=== PATIENT | female | born 1965 | race American Indian/Alaskan Native ===

== ENCOUNTER 2017-10-31 09:01 | Outpatient (CLI) | payer OTHER ==
--- NOTE | 2017-10-31 11:56 | Ultrasound Report ---
ULTRASOUND RENAL BILATERAL HISTORY: Kidney disease stage III. TECHNIQUE: transabdominal ultrasound with color Doppler interrogation. COMPARISON: none. FINDINGS: The right kidney measures 10.6 x 3.9 x 4.1cm. Right renal cortex: 1.4cm. The left kidney measures 12.4 x 5.1 x 6.2cm. Left renal cortex: 1.5cm. The kidneys are normal size, contour and position. There is increased renal cortical echotexture bilaterally consistent with nonspecific renal parenchymal disease. Corticomedullary differentiation is preserved. There are 2 cysts in the mid to inferior right kidney measuring 2.2 cm and 1.7 cm. There are 3 cysts in the left kidney measuring 1.2 cm, 1.1 cm and 0.8 cm. No evidence for mass, nephrolithiasis, hydronephrosis or perinephric fluid. The views of the bladder and the region of the ureters appear normal. IMPRESSION: Slightly echogenic kidneys consistent with nonspecific renal parenchymal disease. Bilateral renal cysts as described. No obstructive uropathy.
== END 2017-10-31 09:02 | disposition home or self-care (01) ==
LOC: US 09:01
PROVIDERS: ATTEND Internal Medicine Nephrology
DX: I12.9 Hypertensive chronic kidney disease with stage 1 through stage 4 chronic kidney disease, or unspecified chronic kidney disease (principal); N18.3 Chronic kidney disease, stage 3 (moderate); N28.1 Cyst of kidney, acquired; I25.10 Atherosclerotic heart disease of native coronary artery without angina pectoris; E66.9 Obesity, unspecified; I73.9 Peripheral vascular disease, unspecified; E03.9 Hypothyroidism, unspecified; Z90.49 Acquired absence of other specified parts of digestive tract
CPT/HCPCS: 76770

== ENCOUNTER 2018-08-31 01:25 | Emergency (ER) | payer SELFPAY ==
[2018-08-31 01:29] VITALS: BP 109/84
[2018-08-31] MEDS ORDERED: TORADOL IM ONE (02:27)
[2018-08-31] MEDS ORDERED: DELTASONE PO ONE (02:27)
--- NOTE | 2018-08-31 03:03 | Emergency Department Report ---
ED Back Pain/Injury HPI - General Chief Complaint: Back Pain/Injury Stated Complaint: LOWER BACK PAIN Time Seen by Provider: 08/31/18 01:44 Source: patient Limitations: No Limitations - History of Present Illness Initial Comments: This is a 52-year-old female nontoxic, well nourished in appearance, no acute signs of distress presents to the ED with c/o of acute on chronic lower back pain. Patient stated that the past 2 days he was moving and developed this pain. 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 Patient states that pain radiates through to his left lower extremity. Patient denies any trauma. Denies any bladder or bowel instability. Patient denies any urinary symptoms. Denies any fever, chills, nausea, vomiting, headache, stiff neck, chest pain or shortness of breath. Patient denies any numbness or tingling. Denies any allergies. Denies significant past medical history. MD Complaint: back pain -: days(s) Similar Symptoms Previously: Yes Place: work Radiation: left leg Severity: mild Severity scale (0 -10): 8 Quality: aching Consistency: intermittent Improves With: immobilization, sitting upright Worsens With: movement, walking Context: while lifting, turning/twisting Associated Symptoms: denies other symptoms. denies: confusion, weakness, chest pain, numbness, difficulty walking, cough, difficulty urinating, diaphoresis, incontinence, fever/chills, constipation, headaches, abdominal pain, loss of appetite, malaise, nausea/vomiting, rash, seizure, shortness of breath, syncope - Related Data Home Medications Medication Instructions Recorded Confirmed Last Taken Aspirin [Aspirin BABY CHEW TAB] 81 mg PO QDAY 06/29/14 12/03/16 11/26/16 09:00 Cyclobenzaprine [Flexeril 10 MG 10 mg PO TID PRN 12/23/15 12/03/16 12/02/16 20:00 TAB] Metoprolol [Lopressor TAB] 25 mg PO DAILY 12/23/15 12/03/16 12/02/16 20:00 amLODIPine [Norvasc] 2.5 mg PO DAILY 12/23/15 12/03/16 12/02/16 20:00 Levothyroxine (Nf) [Synthroid (Nf)] 200 mcg PO QAM 11/26/16 12/03/16 12/02/16 20:00 Hydrochlorothiazide 25 mg PO DAILY 12/03/16 12/03/16 11/30/16 20:00 Previous Rx's Medication Instructions Recorded Last Taken Type AtorvaSTATin [Lipitor] 40 mg PO DAILY #30 tablet 12/13/14 12/02/16 20:00 Rx Ibuprofen 800 mg PO Q6HR PRN #30 tablet 12/03/16 Unknown Rx Cyclobenzaprine [Flexeril] 10 mg PO QHS PRN #10 tablet 08/31/18 Unknown Rx Ibuprofen [Motrin] 600 mg PO Q8H PRN #20 tablet 08/31/18 Unknown Rx Allergies Allergy/AdvReac Type Severity Reaction Status Date / Time No Known Allergies Allergy Verified 11/26/16 15:10 ED Review of Systems ROS: Stated complaint: LOWER BACK PAIN Other details as noted in HPI Constitutional: denies: chills, fever Eyes: denies: eye pain, eye discharge, vision change ENT: denies: ear pain, throat pain Respiratory: denies: cough, shortness of breath, wheezing Cardiovascular: denies: chest pain, palpitations Endocrine: no symptoms reported Gastrointestinal: denies: abdominal pain, nausea, diarrhea Genitourinary: denies: urgency, dysuria, discharge Musculoskeletal: back pain. denies: joint swelling, arthralgia Skin: denies: rash, lesions Neurological: denies: headache, weakness, paresthesias Psychiatric: denies: anxiety, depression Hematological/Lymphatic: denies: easy bleeding, easy bruising ED Past Medical Hx - Past Medical History Previous Medical History?: Yes Hx Hypertension: Yes Hx Heart Attack/AMI: Yes (2012 and 2013) Hx Renal Disease: No Hx Sickle Cell Disease: No Hx HIV: No Additional medical history: CAD, high cholesterol, Hypothyroidism. "multiple renal cysts" - Surgical History Past Surgical History?: Yes Hx Coronary Stent: Yes (03/23 x3) Hx Cholecystectomy: Yes - Social History Smoking Status: Current Every Day Smoker - Medications Home Medications: Home Medications Medication Instructions Recorded Confirmed Last Taken Type Aspirin [Aspirin BABY CHEW TAB] 81 mg PO QDAY 06/29/14 12/03/16 11/26/16 09:00 History AtorvaSTATin [Lipitor] 40 mg PO DAILY #30 tablet 12/13/14 12/03/16 12/02/16 20:00 Rx Cyclobenzaprine [Flexeril 10 MG 10 mg PO TID PRN 12/23/15 12/03/16 12/02/16 20:00 History TAB] Metoprolol [Lopressor TAB] 25 mg PO DAILY 12/23/15 12/03/16 12/02/16 20:00 History amLODIPine [Norvasc] 2.5 mg PO DAILY 12/23/15 12/03/16 12/02/16 20:00 History Levothyroxine (Nf) [Synthroid (Nf)] 200 mcg PO QAM 11/26/16 12/03/16 12/02/16 20:00 History Hydrochlorothiazide 25 mg PO DAILY 12/03/16 12/03/16 11/30/16 20:00 History Ibuprofen 800 mg PO Q6HR PRN #30 tablet 12/03/16 Unknown Rx Cyclobenzaprine [Flexeril] 10 mg PO QHS PRN #10 tablet 08/31/18 Unknown Rx Ibuprofen [Motrin] 600 mg PO Q8H PRN #20 tablet 08/31/18 Unknown Rx ED Physical Exam - General Limitations: No Limitations General appearance: alert, in no apparent distress - Head Head exam: Present: atraumatic, normocephalic - Eye Eye exam: Present: normal appearance - Neck Neck exam: Present: normal inspection, full ROM. Absent: tenderness, meningismus, lymphadenopathy - Extremities Exam Extremities exam: Present: normal inspection, full ROM. Absent: tenderness - Back Exam Back exam: Present: normal inspection, full ROM, paraspinal tenderness (lumbar paraspinal). Absent: tenderness, CVA tenderness (R), CVA tenderness (L), muscle spasm, vertebral tenderness, rash noted - Expanded Back Exam Expanded Back exam: Absent: saddle anesthesia Back exam: Negative Straight Leg Raising: Left, Right - Neurological Exam Neurological exam: Present: alert, oriented X3, normal gait - Psychiatric Psychiatric exam: Present: normal affect, normal mood - Skin Skin exam: Present: warm, dry, intact, normal color. Absent: rash ED Course Vital Signs 08/31/18 08/31/18 01:27 02:40 Temperature 97.9 F Pulse Rate 70 Respiratory 16 16 Rate Blood Pressure 109/84 O2 Sat by Pulse 98 Oximetry - Reevaluation(s) Reevaluation #1: 08/31/18 03:01 Patient is speaking in full sentences with no signs of distress noted. ED Medical Decision Making - Medical Decision Making This is a 52-year-old female that presents with low back strain. Patient is stable was examined by me. There is no spinal tenderness. There is no cauda equina syndrome during examination. No bladder or bowel instability. Patient received Toradol 60 mg IM and prednisone in the ED which preceded his symptoms has resolved and subsided. Patient is discharged with muscle relaxant and Motrin. Patient was instructed not to operate any machinery while taking muscle relaxant as they cause her drowsiness. Patient was referred to Follow-up with a primary care doctor in 3-5 days or if symptoms worsen and continue return to emergency room as soon as possible. At time of discharge, the patient does not seem toxic or ill in appearance. No acute signs of distress noted. Patient agrees to discharge treatment plan of care. No further questions noted by the patient. This chart is dictated with using [employer] Critical care attestation.: If time is entered above; I have spent that time in minutes in the direct care of this critically ill patient, excluding procedure time. ED Disposition Clinical Impression: Low back strain Qualifiers: Encounter type: initial encounter Qualified Code(s): S39.012A - Strain of muscle, fascia and tendon of lower back, initial encounter Disposition: DC- TO HOME OR SELFCARE Is pt being admited?: No Does the pt Need Aspirin: No Condition: Stable Instructions: Low Back Strain (ED), Cyclobenzaprine (By mouth) Additional Instructions: Follow-up with your primary care doctor in 3-5 days or if symptoms worsen such as bladder or bowel stability, chest pain, short of breath, numbness or tingling sensation in extremities, headache, dizziness, visual changes, nausea vomiting, or abdominal pain, return back to emergency room as was possible. Take ibuprofen and Flexeril as prescribed. Do not operate heavy machinery while taking Flexeril due to sedation Prescriptions: Cyclobenzaprine [Flexeril] 10 mg PO QHS PRN #10 tablet PRN Reason: Muscle Spasm Ibuprofen [Motrin] 600 mg PO Q8H PRN #20 tablet PRN Reason: Pain Referrals: [facility] MD RADHA [Primary Care Provider] - 3-5 Days PRIMARY MD GEENA [Referring] - 3-5 Days BRUNA MCBRIDE MD [Staff Physician] - 3-5 Days [facility] [Outside] - 3-5 Days [facility] [Outside] - 3-5 Days Forms: Work/School Release Form(ED)
== END 2018-08-31 03:28 | disposition home or self-care (01) ==
LOC: ED 01:25
DX: S39.012A Strain of muscle, fascia and tendon of lower back, initial encounter (principal); I10 Essential (primary) hypertension; I25.2 Old myocardial infarction; I25.10 Atherosclerotic heart disease of native coronary artery without angina pectoris; E78.00 Pure hypercholesterolemia, unspecified; E03.9 Hypothyroidism, unspecified; F17.200 Nicotine dependence, unspecified, uncomplicated; Z79.899 Other long term (current) drug therapy; Z95.5 Presence of coronary angioplasty implant and graft; Z90.49 Acquired absence of other specified parts of digestive tract; X58.XXXA Exposure to other specified factors, initial encounter; Y93.89 Activity, other specified; Y92.89 Other specified places as the place of occurrence of the external cause; Y99.8 Other external cause status
CPT/HCPCS: 96372; 99282; J1885; J7512

== ENCOUNTER 2018-12-01 16:08 | Observation (INO) | payer SELFPAY ==
--- NOTE | 2018-12-01 16:31 | Emergency Department Report ---
Blank Doc - Documentation Documentation: c/o of cough and congestion for 2-3 months and a round of antibiotics has not help to resolve the cough and mucus. She reports now having mid chest pain and sob and symptoms worsen with supine has to sleep in semifowlers. This initial assessment/diagnostic orders/clinical plan/treatment(s) is/are subject to change based on patient's health status, clinical progression and re- assessment by fellow clinical providers in the ED. Further treatment and workup at subsequent clinical providers discretion. Patient/guardians urged not to elope from the ED as their condition may be serious if not clinically assessed and managed. Initial orders include: labs and xray
--- NOTE | 2018-12-01 17:17 | XRay Report ---
CHEST 2 VIEWS INDICATION: Chest Pain. COMPARISON: 12/13/2014 FINDINGS: Support devices: None. Heart: Slightly enlarged Lungs: Bronchovascular markings are prominent. Pleura: No significant pleural effusion. No pneumothorax. Additional findings: None. IMPRESSION: 1. Interval development mild cardiac enlargement with mild pulmonary venous hypertension Signer Name: Mathew Pandya MD Signed: 12/01/2018 5:13 PM Workstation Name: [id number]
[2018-12-01] MEDS ORDERED: guaiFENesin/CODEINE 100-10MG ORAL LIQD 5 ML PO ONE (17:31)
[2018-12-01] MEDS ORDERED: methylPREDNISolone Sod Succinate 125 MG/2 ML INJ IV ONE (17:31)
[2018-12-01] MEDS ORDERED: IPRATROPIUM/ALBUTEROL SULFATE 3 ML AMPUL.NEB IH ONE (17:32)
--- NOTE | 2018-12-01 17:54 | Emergency Department Report ---
ED Chest Pain HPI - General Chief Complaint: Chest Pain Stated Complaint: CHEST PAIN/COUGH/STOMACH ACHE Time Seen by Provider: 12/01/18 16:28 Source: patient Mode of arrival: Ambulatory Limitations: No Limitations - History of Present Illness Initial Comments: 53-year-old -[place] female presents to the emergency department with the complaint of a chronic cough and some acute chest pain. The patient says that she has a two-month history of a productive cough. She spent some time recently in [place] and says that she developed a cold and was being treated there with some antibiotics but the cough never improved. Starting yesterday, the patient has developed some midsternal nonradiating chest tightness/pain. It is associated with some shortness of breath that worsens when laying flat. She appears a been on cough medication. She has a past mental history of coronary artery disease with NC 2 and 3 cardiac stents, hypertension, high cholesterol and hypothyroidism. Her primary care physician is Dr. 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 - Related Data Home Medications Medication Instructions Recorded Confirmed Last Taken Aspirin [Aspirin BABY CHEW TAB] 81 mg PO QDAY 06/29/14 12/03/16 11/30/18 22:00 Metoprolol [Lopressor TAB] 25 mg PO DAILY 12/23/15 12/03/16 12/02/16 20:00 amLODIPine 2.5 mg PO DAILY 12/23/15 12/03/16 12/02/16 20:00 Levothyroxine (Nf) [Synthroid (Nf)] 200 mcg PO QAM 11/26/16 12/03/16 12/02/16 20:00 Hydrochlorothiazide 25 mg PO DAILY 12/03/16 12/01/18 11/30/16 20:00 Procardia Xl 90 mg PO QDAY 12/01/18 12/01/18 11/30/18 22:00 Previous Rx's Medication Instructions Recorded Last Taken Type AtorvaSTATin [Lipitor] 40 mg PO DAILY #30 tablet 12/13/14 12/02/16 20:00 Rx Cyclobenzaprine [Flexeril] 10 mg PO QHS PRN #10 tablet 08/31/18 Unknown Rx Ibuprofen [Motrin] 600 mg PO Q8H PRN #20 tablet 08/31/18 Unknown Rx Allergies Allergy/AdvReac Type Severity Reaction Status Date / Time No Known Allergies Allergy Verified 11/26/16 15:10 Heart Score - HEART Score History: Moderately suspicious EKG: Non-specific Age: 45-65 Risk factors: > 3 risk factors or hx of atherosclerotic disease (mother) Troponin: < normal limit HEART Score: 5 - Critical Actions Critical Actions: 4-6 pts:12-16.6% risk of adverse cardiac event. Should be admitted ED Review of Systems ROS: Stated complaint: CHEST PAIN/COUGH/STOMACH ACHE Other details as noted in HPI Comment: All other systems reviewed and negative Constitutional: denies: chills, fever Eyes: denies: eye pain, vision change ENT: denies: ear pain, throat pain Respiratory: cough, orthopnea, shortness of breath Cardiovascular: chest pain. denies: palpitations, edema Gastrointestinal: denies: abdominal pain, vomiting Genitourinary: denies: dysuria, discharge Musculoskeletal: denies: back pain, arthralgia Skin: denies: rash, lesions Neurological: denies: headache, weakness ED Past Medical Hx - Past Medical History Previous Medical History?: Yes Hx Hypertension: Yes Hx Heart Attack/AMI: Yes (2012 and 2013) Hx Renal Disease: No Hx Sickle Cell Disease: No Hx HIV: No Additional medical history: CAD, high cholesterol, Hypothyroidism. "multiple renal cysts" - Surgical History Past Surgical History?: Yes Hx Coronary Stent: Yes (03/23 x3) Hx Cholecystectomy: Yes - Social History Smoking Status: Current Every Day Smoker Substance Use Type: None - Medications Home Medications: Home Medications Medication Instructions Recorded Confirmed Last Taken Type Aspirin [Aspirin BABY CHEW TAB] 81 mg PO QDAY 06/29/14 12/03/16 11/30/18 22:00 History AtorvaSTATin [Lipitor] 40 mg PO DAILY #30 tablet 12/13/14 12/03/16 12/02/16 20:00 Rx Metoprolol [Lopressor TAB] 25 mg PO DAILY 12/23/15 12/03/16 12/02/16 20:00 History amLODIPine 2.5 mg PO DAILY 12/23/15 12/03/16 12/02/16 20:00 History Levothyroxine (Nf) [Synthroid (Nf)] 200 mcg PO QAM 11/26/16 12/03/16 12/02/16 20:00 History Hydrochlorothiazide 25 mg PO DAILY 12/03/16 12/01/18 11/30/16 20:00 History Cyclobenzaprine [Flexeril] 10 mg PO QHS PRN #10 tablet 08/31/18 Unknown Rx Ibuprofen [Motrin] 600 mg PO Q8H PRN #20 tablet 08/31/18 Unknown Rx Procardia Xl 90 mg PO QDAY 12/01/18 12/01/18 11/30/18 22:00 History ED Physical Exam - General Limitations: No Limitations - Other Other exam information: GENERAL: The patient is well-developed well-nourished. HENT: Normocephalic. Atraumatic. Patient has moist mucous membranes. EYES: Extraocular motions are intact. Pupils equal reactive to light bilaterally. NECK: Supple. Trachea is midline. CHEST/LUNGS: Clear to auscultation. No tachypnea or accessory muscle use. No cough heard during examination. There is no respiratory distress noted. HEART/CARDIOVASCULAR: Regular. There is no tachycardia. There is no murmur. ABDOMEN: Abdomen is soft, nontender. Patient has normal bowel sounds. There is no abdominal distention. SKIN: Skin is warm and dry. NEURO: The patient is awake, alert, and oriented. The patient is cooperative. The patient has no focal neurologic deficits. Normal speech. MUSCULOSKELETAL: There is no tenderness or deformity. There is no evidence of acute injury. ED Course Vital Signs 12/01/18 12/01/18 12/01/18 16:26 17:50 18:01 Temperature 97.5 F L Pulse Rate 83 76 Pulse Rate [ Anterior Bilateral Throughout] Respiratory 22 19 Rate Respiratory Rate [Anterior Bilateral Throughout] Blood Pressure 167/104 135/89 Blood Pressure [Left] O2 Sat by Pulse 99 97 94 Oximetry 12/01/18 12/01/18 12/01/18 18:02 18:31 19:00 Temperature 98 F Pulse Rate 83 79 Pulse Rate [ 77 Anterior Bilateral Throughout] Respiratory 16 23 16 Rate Respiratory 18 Rate [Anterior Bilateral Throughout] Blood Pressure 135/89 Blood Pressure 142/86 [Left] O2 Sat by Pulse 96 92 97 Oximetry 12/01/18 12/01/18 12/01/18 19:01 19:31 20:33 Temperature Pulse Rate 84 81 Pulse Rate [ Anterior Bilateral Throughout] Respiratory 14 20 Rate Respiratory Rate [Anterior Bilateral Throughout] Blood Pressure 135/89 142/86 142/86 Blood Pressure [Left] O2 Sat by Pulse 94 95 96 Oximetry 12/01/18 12/01/18 12/01/18 20:51 21:00 21:11 Temperature Pulse Rate Pulse Rate [ Anterior Bilateral Throughout] Respiratory Rate Respiratory Rate [Anterior Bilateral Throughout] Blood Pressure 142/86 159/90 159/90 Blood Pressure [Left] O2 Sat by Pulse 96 97 96 Oximetry 12/01/18 12/01/18 21:21 21:31 Temperature Pulse Rate Pulse Rate [ Anterior Bilateral Throughout] Respiratory Rate Respiratory Rate [Anterior Bilateral Throughout] Blood Pressure 159/90 142/98 Blood Pressure [Left] O2 Sat by Pulse 92 92 Oximetry ED Medical Decision Making - Lab Data Result diagrams: 12/01/18 17:12 12/01/18 17:12 - EKG Data -: EKG Interpreted by Me EKG shows normal: sinus rhythm (PACs), axis (left axis deviation), intervals, QRS complexes, ST-T waves (t wave inversions to the lateral leads) Rate: normal - EKG Data When compared to previous EKG there are: no significant change Interpretation: unchanged when compared t (12/23/15) - Radiology Data Radiology results: report reviewed, image reviewed interpreted by me: Chest x-ray shows some cardiomegaly and pulmonary vascular congestion. No overt pleural effusions. Nuclear medicine lung ventilation and perfusion imaging INDICATION / CLINICAL INFORMATION: Chest pain and elevated d-dimer. TECHNIQUE: Dose / Agent / Route: The patient received 20.9 mCi xenon-133 gas by inhalation and 4.66 mCi technetium 99m MAA intravenously. COMPARISON: Chest radiograph from the same date. FINDINGS: There is mild air trapping in both mid to lower lung zones, left greater than right. There is mild inhomogeneity of perfusion bilaterally. No segmental or larger area of ventilation-perfusion mismatch is seen. The accompanying chest radiograph reveals cardiomegaly and coronary artery calcification/stents. No acute pulmonary disease is identified. IMPRESSION: Low probability for acute PTE. - Medical Decision Making This patient presents with a two-month history of a productive cough and now has developed some chest pain. She does have a history of coronary artery disease with cardiac stents. Chest x-ray shows some cardiomegaly and pulmonary vascular congestion. Labs show renal insufficiency, an elevated and equivocal d-dimer, slightly elevated BNP. Negative troponins 2 thus far. Ventilation perfusion scan is low probability for a pulmonary embolus. Given her chest pain, cardiac history, and that it has been a few years since she last had a stress test, the patient be admitted to the hospital for further evaluation and treatment and was accepted for admission by the hospitalist service. - Differential Diagnosis NC, PE, pneumonia, CHF Critical Care Time: No Critical care attestation.: If time is entered above; I have spent that time in minutes in the direct care of this critically ill patient, excluding procedure time. ED Disposition Clinical Impression: Acute chest pain, History of coronary artery stent placement Acute renal failure Qualifiers: Acute renal failure type: unspecified Qualified Code(s): N17.9 - Acute kidney failure, unspecified Disposition: DC-09 OP ADMIT IP TO THIS HOSP Is pt being admited?: Yes Condition: Fair Time of Disposition: 23:02
[2018-12-01 18:02] LABS: Hematocrit 41.7 % (30.3-42.9); Hemoglobin 14.1 gm/dl (10.1-14.3); Mean Corpuscular HGB Conc 34 % (30-34); Mean Corpuscular Volume 92 fl (79-97); Platelet Count 435 K/mm3 (140-440); Red Blood Count 4.52 M/mm3 (3.65-5.03); Red Cell Distribution Width 15.8 % (13.2-15.2)
[2018-12-01 18:06] LABS: Alanine Aminotransferase 12 units/L (7-56); Albumin 4.5 g/dL (3.9-5); BUN/Creatinine Ratio 13; Blood Urea Nitrogen 23 mg/dL (7-17); Calcium 9.2 mg/dL (8.4-10.2); Hemolysis Index 24
[2018-12-01] MEDS ORDERED: HYDROmorphone 1 MG/1 ML INJ IV PRN (19:47)
[2018-12-01] MEDS ORDERED: MORPHINE 2 MG/1 ML INJ IV PRN (19:47)
[2018-12-01] MEDS ORDERED: ONDANSETRON 4 MG/2 ML INJ IV PRN (19:47)
[2018-12-01] MEDS ORDERED: ALBUTEROL 2.5 MG/3 ML NEBU IH PRN (19:47)
[2018-12-01] MEDS ORDERED: ACETAMINOPHEN 325 MG TAB PO PRN (19:47)
[2018-12-01 19:59] LABS: Basophils % (Manual) 0 % (0.0-1.8); Eosinophils % (Manual) 0 % (0.0-4.3); RBC Morphology Normal; Total Cells Counted 100
[2018-12-01] MEDS ORDERED: SODIUM CHLORIDE 0.9% 1000 ML 1,000 ML IV SCH (20:00)
--- NOTE | 2018-12-01 20:47 | Nuclear Medicine Report ---
Nuclear medicine lung ventilation and perfusion imaging INDICATION / CLINICAL INFORMATION: Chest pain and elevated d-dimer. TECHNIQUE: Dose / Agent / Route: The patient received 20.9 mCi xenon-133 gas by inhalation and 4.66 mCi techneti um 99m MAA intravenously. COMPARISON: Chest radiograph from the same date. FINDINGS: There is mild air trapping in both mid to lower lung zones, left greater than right. There is mild in homogeneity of perfusion bilaterally. No segmental or larger area of ventilation-perfusion mismatch i s seen. The accompanying chest radiograph reveals cardiomegaly and coronary artery calcification/stents. No a cute pulmonary disease is identified. IMPRESSION: Low probability for acute PTE. Signer Name: Angel Castillo MD Signed: 12/01/2018 8:43 PM Workstation Name: [id number]
--- NOTE | 2018-12-01 21:17 | History and Physical Report ---
History of Present Illness Date of examination: 12/01/18 Date of admission: 12/01/18 19:47 Chief complaint: chest pain History of present illness: 53-year-old -Chinese female who is an ongoing smoker with history of IN 2, CAD s/p stent 3, hypertension, hypothyroidism and multiple renal cysts who presents [facility] with complaints of intermittent substernal chest pain with radiation to stomach. Patient states that she's been experiencing substernal chest pain with radiation to epigastric area for the past 2 days. She states that she was awakened out of sleep with 10/10 sharp/burning chest pain. The following morning she went to work and her chest pain returned. 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 She states that her chest pain was accompanied by diaphoresis and nausea. She denies emesis. Patient states that she is compliant with medication and follows up regularly with her hearing examiner ( Dr. Garcia @ [facility]), last appointment approximately 3-4 months ago. Her PCP is Dr. Armendariz. She admits to being diag nosed and treated for bronchitis in August of this year. Past History Past Medical History: acute IN (x2 ( 2012, 2013)), CAD (s/p stent x 2 (x2 01/26 14, x1 03/2014)), hypertension, hyperlipidemia, hypothyroidism, other (obesity, normal stress test, multiple renal cysts) Past Surgical History: Other (s/p stent x 2 (x2 01/2014, x1 03/2014)) Social history: Lives alone, smoking (current every day smoker) Family history: hypertension Medications and Allergies Allergies Allergy/AdvReac Type Severity Reaction Status Date / Time No Known Allergies Allergy Verified 11/26/16 15:10 Home Medications Medication Instructions Recorded Confirmed Last Taken Type Aspirin [Aspirin BABY CHEW TAB] 81 mg PO QDAY 06/29/14 12/03/16 11/26/16 09:00 History AtorvaSTATin [Lipitor] 40 mg PO DAILY #30 tablet 12/13/14 12/03/16 12/02/16 20:00 Rx Metoprolol [Lopressor TAB] 25 mg PO DAILY 12/23/15 12/03/16 12/02/16 20:00 History amLODIPine 2.5 mg PO DAILY 12/23/15 12/03/1617 20:00 History Levothyroxine (Nf) [Synthroid (Nf)] 200 mcg PO QAM 11/26/16 12/03/16 12/02/16 20:00 History Hydrochlorothiazide 25 mg PO DAILY 12/03/16 12/01/18 11/30/16 20:00 History Cyclobenzaprine [Flexeril] 10 mg PO QHS PRN #10 tablet 08/31/18 Unknown Rx Ibuprofen [Motrin] 600 mg PO Q8H PRN #20 tablet 08/31/18 Unknown Rx Active Meds: Active Medications Acetaminophen (Tylenol) 650 mg PO Q4H PRN PRN Reason: Pain MILD(1-3)/Fever >100.5/MONROY Albuterol (Proventil) 2.5 mg IH Q3HRT PRN PRN Reason: Shortness Of Breath Amlodipine Besylate (Amlodipine) 2.5 mg PO DAILY [facility] Aspirin (Baby Aspirin) 81 mg PO QDAY [facility] Atorvastatin Calcium (Lipitor) 40 mg PO DAILY [facility] Guaifenesin (Mucinex Er) 600 mg PO BID [facility] Heparin Sodium (Porcine) (Heparin) 5,000 unit SUB-Q Q12HR [facility] Hydrochlorothiazide (Hctz) 25 mg PO QDAY [facility] Hydromorphone HCl (Dilaudid) 0.5 mg IV Q3H PRN PRN Reason: Pain , Severe (7-10) Sodium Chloride (Nacl 0.9% 1000 Ml) 1,000 mls @ 50 mls/hr IV DIRECT ROMMEL Levothyroxine Sodium (Synthroid) 200 mcg PO QAM [facility] Metoprolol Tartrate (Metoprolol) 25 mg PO DAILY [facility] Morphine Sulfate (Morphine) 2 mg IV Q4H PRN PRN Reason: Pain, Moderate (4-6) Nicotine (Habitrol) 14 mg TD QDAY [facility] Ondansetron HCl (Zofran) 4 mg IV Q6H PRN PRN Reason: Nausea And Vomiting Sodium Chloride (Sodium Chloride Flush Syringe 10 Ml) 10 ml IV BID [facility] Sodium Chloride (Sodium Chloride Flush Syringe 10 Ml) 10 ml IV PRN PRN PRN Reason: LINE FLUSH Sodium Chloride (Sodium Chloride Flush Syringe 10 Ml) 10 ml IV PRN PRN PRN Reason: LINE FLUSH Review of Systems All systems: negative Cardiovascular: chest pain, orthopnea Respiratory: cough with sputum (chronic cough, some clear sputum, previously treated for bronchitis approximately 4 months ago at a facility in [place]) Gastrointestinal: heartburn, indigestion, other (abdominal discomfort) Musculoskeletal: arm numbness/tingling (chronic numbness and tingling to right arm) Exam - Physical Exam Narrative exam: General appearance: Present: No acute distress, awake, alert and oriented 3, well-developed, well-nourished, pleasant adult female - EENT Eyes: Present: PERRL, EOM intact ENT: hearing intact, double dentition - Neck Neck: Present: supple, normal ROM - Respiratory Respiratory effort: Non-labored Respiratory: bilateral: CTA with diminished bases bilaterally - Cardiovascular Heart rate:88 (bpm) Rhythm:SR nonspecific T-wave abnormalities Heart Sounds: Present: S1, S2. - Extremities Extremities: no ischemia, pulses intact - Peripheral Assessment Peripheral Pulses: within normal limits - Abdominal General gastrointestinal: soft, non-tender, normal bowel sounds, - Integumentary Integumentary: Present: warm, dry - Musculoskeletal Musculoskeletal: able to move all extremities, normal gait -Neurological Neurological: CN II-XII grossly intact - Psychiatric Psychiatric: cooperative - Constitutional Vitals: Temp Pulse Resp BP Pulse Ox 98 F 81 20 142/86 96 12/01/18 19:00 12/01/18 19:31 12/01/18 19:31 12/01/18 20:33 12/01/18 20:33 Results - Labs CBC & Chem 7: 12/01/18 17:12 12/01/18 17:12 Labs: Laboratory Last Values WBC 9.9 K/mm3 (4.5-11.0) 12/01/18 17:12 RBC 4.52 M/mm3 (3.65-5.03) 12/01/18 17:12 Hgb 14.1 gm/dl (10.1-14.3) 12/01/18 17:12 Hct 41.7 % (30.3-42.9) 12/01/18 17:12 MCV 92 fl (79-97) 12/01/18 17:12 MCH 31 pg (28-32) 12/01/18 17:12 MCHC 34 % (30-34) 12/01/18 17:12 RDW 15.8 % (13.2-15.2) H 12/01/18 17:12 Plt Count 435 K/mm3 (140-440) 12/01/18 17:12 Add Manual Diff Complete 12/01/18 17:12 Total Counted 100 12/01/18 17:12 Seg Neuts % (Manual) 74.0 % (40.0-70.0) H 12/01/18 17:12 Band Neutrophils % 0 % 12/01/18 17:12 Lymphocytes % (Manual) 22.0 % (13.4-35.0) 12/01/18 17:12 Reactive Lymphs % (Man) 0 % 12/01/18 17:12 Monocytes % (Manual) 4.0 % (0.0-7.3) 12/01/18 17:12 Eosinophils % (Manual) 0 % (0.0-4.3) 12/01/18 17:12 Basophils % (Manual) 0 % (0.0-1.8) 12/01/18 17:12 Metamyelocytes % 0 % 12/01/18 17:12 Myelocytes % 0 % 12/01/18 17:12 Promyelocytes % 0 % 12/01/18 17:12 Blast Cells % 0 % 12/01/18 17:12 Nucleated RBC % Not Reportable 12/01/18 17:12 Seg Neutrophils # Man 7.3 K/mm3 (1.8-7.7) 12/01/18 17:12 Band Neutrophils # 0.0 K/mm3 12/01/18 17:12 Lymphocytes # (Manual) 2.2 K/mm3 (1.2-5.4) 12/01/18 17:12 Abs React Lymphs (Man) 0.0 K/mm3 12/01/18 17:12 Monocytes # (Manual) 0.4 K/mm3 (0.0-0.8) 12/01/18 17:12 Eosinophils # (Manual) 0.0 K/mm3 (0.0-0.4) 12/01/18 17:12 Basophils # (Manual) 0.0 K/mm3 (0.0-0.1) 12/01/18 17:12 Metamyelocytes # 0.0 K/mm3 12/01/18 17:12 Myelocytes # 0.0 K/mm3 12/01/18 17:12 Promyelocytes # 0.0 K/mm3 12/01/18 17:12 Blast Cells # 0.0 K/mm3 12/01/18 17:12 WBC Morphology Not Reportable 12/01/18 17:12 Hypersegmented Neuts Not Reportable 12/01/18 17:12 Hyposegmented Neuts Not Reportable 12/01/18 17:12 Hypogranular Neuts Not Reportable 12/01/18 17:12 Smudge Cells Not Reportable 12/01/18 17:12 Toxic Granulation Not Reportable 12/01/18 17:12 Toxic Vacuolation Not Reportable 12/01/18 17:12 Dohle Bodies Not Reportable 12/01/18 17:12 Pelger-Huet Anomaly Not Reportable 12/01/18 17:12 Harsh Rods Not Reportable 12/01/18 17:12 Platelet Estimate Appears normal 12/01/18 17:12 Clumped Platelets Not Reportable 12/01/18 17:12 Plt Clumps, EDTA Not Reportable 12/01/18 17:12 Large Platelets Not Reportable 12/01/18 17:12 Giant Platelets Not Reportable 12/01/18 17:12 Platelet Satelliting Not Reportable 12/01/18 17:12 Plt Morphology Comment Not Reportable 12/01/18 17:12 RBC Morphology Normal 12/01/18 17:12 Dimorphic RBCs Not Reportable 12/01/18 17:12 Polychromasia Not Reportable 12/01/18 17:12 Hypochromasia Not Reportable 12/01/18 17:12 Poikilocytosis Not Reportable 12/01/18 17:12 Anisocytosis Not Reportable 12/01/18 17:12 Microcytosis Not Reportable 12/01/18 17:12 Macrocytosis Not Reportable 12/01/18 17:12 Spherocytes Not Reportable 12/01/18 17:12 Pappenheimer Bodies Not Reportable 12/01/18 17:12 Sickle Cells Not Reportable 12/01/18 17:12 Target Cells Not Reportable 12/01/18 17:12 Tear Drop Cells Not Reportable 12/01/18 17:12 Ovalocytes Not Reportable 12/01/18 17:12 Helmet Cells Not Reportable 12/01/18 17:12 [place] Bodies Not Reportable 12/01/18 17:12 [place] Rings Not Reportable 12/01/18 17:12 [place] Cells Not Reportable 12/01/18 17:12 Bite Cells Not Reportable 12/01/18 17:12 Crenated Cell Not Reportable 12/01/18 17:12 Elliptocytes Not Reportable 12/01/18 17:12 Acanthocytes (Spur) Not Reportable 12/01/18 17:12 Rouleaux Not Reportable 12/01/18 17:12 Hemoglobin C Crystals Not Reportable 12/01/18 17:12 Schistocytes Not Reportable 12/01/18 17:12 Malaria parasites Not Reportable 12/01/18 17:12 [place] Bodies Not Reportable 12/01/18 17:12 Hem Pathologist Commnt No 12/01/18 17:12 D-Dimer 285.64 ng/mlDDU (0-234) H 12/01/18 17:22 Sodium 140 mmol/L (137-145) 12/01/18 17:12 Potassium 3.5 mmol/L (3.6-5.0) L 12/01/18 17:12 Chloride 102.2 mmol/L (98-107) 12/01/18 17:12 Carbon Dioxide 22 mmol/L (22-30) 12/01/18 17:12 Anion Gap 19 mmol/L 12/01/18 17:12 BUN 23 mg/dL (7-17) H 12/01/18 17:12 Creatinine 1.8 mg/dL (0.7-1.2) H 12/01/18 17:12 Estimated GFR 35 ml/min 12/01/18 17:12 BUN/Creatinine Ratio 13 % 12/01/18 17:12 Glucose 85 mg/dL (65-100) 12/01/18 17:12 Calcium 9.2 mg/dL (8.4-10.2) 12/01/18 17:12 Total Bilirubin 0.40 mg/dL (0.1-1.2) 12/01/18 17:12 AST 18 units/L (5-40) 12/01/18 17:12 ALT 12 units/L (7-56) 12/01/18 17:12 Alkaline Phosphatase 143 units/L (35-129) H 12/01/18 17:12 Troponin T < 0.010 ng/mL (0.00-0.029) 12/01/18 17:12 NT-Pro-B Natriuret Pep 527.1 pg/mL (0-900) 12/01/18 17:50 Total Protein 8.4 g/dL (6.3-8.2) H 12/01/18 17:12 Albumin 4.5 g/dL (3.9-5) 12/01/18 17:12 Albumin/Globulin Ratio 1.2 % 12/01/18 17:12 TSH 21.660 mlU/mL (0.270-4.200) H 12/01/18 17:22 Free T4 0.85 ng/dL (0.76-1.46) 12/01/18 18:19 - Imaging and Cardiology Imaging and Cardiology: CXR: FINDINGS: Support devices: None. Heart: Slightly enlarged Lungs: Bronchovascular markings are prominent. Pleura: No significant pleural effusion. No pneumothorax. Additional findings: None. IMPRESSION: 1. Interval development mild cardiac enlargement with mild pulmonary venous hypertension V/Q FINDINGS: There is mild air trapping in both mid to lower lung zones, left greater than right. There is mild inhomogeneity of perfusion bilaterally. No segmental or larger area of ventilation-perfusion mismatch is seen. The accompanying chest radiograph reveals cardiomegaly and coronary artery calcification/stents. No acute pulmonary disease is identified. IMPRESSION: Low probability for acute PTE. Assessment and Plan Assessment and plan: 53-year-old -Chinese female who is an ongoing smoker with history of IN 2, CAD s/p stent 3, hypertension, hypothyroidism and multiple renal cysts who presents [facility] ED with complaints of intermittent substernal chest pain with radi ation to stomach for the past 2 days. At the time of my examination patient is sitting up in stretcher with no S/S of distress. She is able to maintain conversation talking complete sentences. She states that even though her chest pain was intermittent in nature and she has had IN 2 in the past she completed her shift before coming to the ED for further evaluation. Acute atypical Chest Pain -CXR shows Interval development mild cardiac enlargement with mild pulmonary venous hypertension -EKG unrevealing for acute ischemic abnormalities -Initiate chest pain protocol -Continuous telemetry monitoring -Continue supportive care -Pain mgmt -Troponin neg x1; continue to trend -Continue ASA and Statin -Hx abnormal stress test 2014 -Hx of IN x2 ( 2012& 2013) s/p stent x3 ( 01/2014& 03/2014) -Per pt Echo done in 2014 unsure of results -Follows [facility] as outpatient -We'll defer additional cardiac workup per cardiology recommendations -Cardiology consulted GERD -Patient complain of abdominal pain/burning after eating -Likely undiagnosed GERD -Start on PPI ANSELMO -Cr on admission 1.8 -Gentle hydration with IVF -Avoid nephrotoxin agents -Renal dose all meds -If no improvement will consider nephrology consult Elevated d-dimer -285.65 -VQ scan negative for PE HTN -Monitor BP -Resume home antihypertensive meds -IV hydralazine when necessary CAD -on ASA and statin Tobacco abuse -Current every day smoker -Counseled for cessation -Nicotine patch when necessary Cough -Diagnosed and treated for Bronchitis in 08/2018 -Chronic cough with occasional clear sputum production -No S/S of infection -Likely secondary to smoker's cough and possibly undiagnosed COPD Hypothyroidism -Continue Synthroid DVT PPX -on Lovenox Advance Directives: No VTE prophylaxis?: Chemical Plan of care discussed with patient/family: Yes
[2018-12-01] MEDS ORDERED: diphenhydrAMINE 50 MG/ML VIAL IV PRN (22:16)
[2018-12-01] MEDS ORDERED: hydrALAZINE 20 MG/1 ML INJ IV PRN (22:30)
[2018-12-01] MEDS: HEPARIN 5,000 UNIT/1 ML VIAL SUB-Q SCH (23:21)
[2018-12-01] MEDS: guaiFENesin ER 600 MG TAB PO SCH (23:21)
[2018-12-01] MEDS: PANTOPRAZOLE 40 MG INJ IV SCH (23:30)
[2018-12-01] MEDS: NICOTINE 14 MG/24 HR PATCH TD SCH (23:30)
[2018-12-02 09:34] LABS: Basophils # (Auto) 0.1 K/mm3 (0.0-0.1); Basophils % (Auto) 0.6 % (0.0-1.8); Hematocrit 45.1 % (30.3-42.9); Hemoglobin 14.7 gm/dl (10.1-14.3); Lymphocytes % (Auto) 10.9 % (13.4-35.0); Mean Corpuscular HGB Conc 33 % (30-34); Mean Corpuscular Volume 94 fl (79-97); Monocytes # (Auto) 0.5 K/mm3 (0.0-0.8); Monocytes % (Auto) 5.4 % (0.0-7.3); Platelet Count 450 K/mm3 (140-440); Red Blood Count 4.79 M/mm3 (3.65-5.03); Red Cell Distribution Width 16.2 % (13.2-15.2)
[2018-12-02] MEDS: amLODIPine 5 MG TAB PO SCH ×2 (09:44→09:52)
[2018-12-02] MEDS: PANTOPRAZOLE 40 MG INJ IV SCH (09:45)
[2018-12-02] MEDS: guaiFENesin ER 600 MG TAB PO SCH (09:45)
[2018-12-02] MEDS: NICOTINE 14 MG/24 HR PATCH TD SCH (09:45)
[2018-12-02] MEDS: HEPARIN 5,000 UNIT/1 ML VIAL SUB-Q SCH (09:45)
[2018-12-02] MEDS ORDERED: METOPROLOL TARTRATE 25 MG TAB PO SCH (10:00)
[2018-12-02] MEDS ORDERED: LEVOTHYROXINE 100 MCG TAB PO SCH (10:00)
[2018-12-02] MEDS ORDERED: ASPIRIN 81 MG TAB CHEW PO SCH (10:00)
[2018-12-02] MEDS ORDERED: hydroCHLOROthiazide 25 MG TAB PO SCH (10:00)
[2018-12-02] MEDS ORDERED: NON-FORMULARY EACH (Hydrochlorothiazide 25 MG) PO SCH (10:00)
[2018-12-02] MEDS ORDERED: LEVOTHYROXINE 200 MCG PO SCH (10:00)
[2018-12-02] MEDS ORDERED: LEVOTHYROXINE 100 MCG INJ IV SCH (10:00)
[2018-12-02 10:04] LABS: Calcium 9.5 mg/dL (8.4-10.2)
[2018-12-02 12:11] VITALS: BP 127/62
--- NOTE | 2018-12-02 12:12 | Event Note ---
Date: 12/02/18 Patient's regular test director is Dr. Crabtree of [facility] heart specialists. Please defer to their service for further cardiac consultation.
--- NOTE | 2018-12-02 13:36 | Discharge Summary ---
Providers - Providers Date of Admission: 12/01/18 19:47 Date of discharge: 12/02/18 Attending physician: WERNER LINDSAY 12/01/18 Consult to Cardiac Rehabilitation [CONS] Routine Reason For Exam: Phase I 12/01/18 19:47 Consult to Physician [CONS] Routine Comment: Consulting Provider: GRACY CHRISTIAN Physician Instructions: Reason For Exam: chest pain, hx abnormal stress test, est pt Primary care physician: [employer] Hospitalization Condition: Stable Hospital course: Patient is a 53-year-old -[place] woman with a history of anxiety disorder, tobacco dependency, MA 2, CAD s/p stent 3, hypertension, hypothyroidism and multiple renal cysts who presents with substernal chest pain with radiation to stomach for the past 2 days. She also needs home meds filled especially her anxiety meds, her PCP is Dr Armendariz. Stress test was ordered by Hospitalist team but was cancelled by Dr. Christian, the School Bus Operator. Then Dr. Riaz cohen went to see this patient and determined that patient was Dr. Crabtree's patient based on old [employer] EMR records dating back to 2014 but patient doesn't recognize Dr. Crabtree's name or [facility]. So, I called Dr. Ivory Law covering for Dr. Crabtree and she did not see any office records of this patient. Patient is very upset and wants to go home because she is symptom free and doesn't want to wait until Tuesday to do a stress test. So, Dr. Law told me that patient can make an important with her on Tuesday. I instructed patient no stress activities including sex, driving, etc...until cleared by School Bus Operator, she voiced understanding and agreement. Discharge Diagnoses: Acute atypical Chest Pain, most likely GERD related GERD ANSELMO-Cr vasomotor nephropathy, poa Cr was 1.8,now 1.2 Elevated d-dimer -VQ scan negative for PE HTN CAD Tobacco abuse Cough Hypothyroidism -Continue Synthroid Disposition: TO HOME OR SELFCARE Time spent for discharge: 36 minutes Core Measure Documentation - Palliative Care Palliative Care/ Comfort Measures: Not Applicable - Core Measures Any of the following diagnoses?: none - VTE Discharge Requirements Deep Vein Thrombosis/Pulmonary Embolism Present on Admission: No Has pt received <5 days of overlap therapy or INR<2.0: No Anticoagulant overlap therapy prescribed at discharge: No Contraindication No Overlap Therapy order at DC: Not Indicated Exam - Physical Exam Narrative exam: Gen: WDWN, NAD, Awake, Alert, Orientated HEENT: NCAT, EOMI, PERRL, OP Clear Neck: supple, no adenopathy, no thyromegaly, no JVD CVS/Heart: RRR, normal S1S2, pulses present bilaterally Chest/Lungs: CTA B, Symmetrical chest expansion, good air entry bilaterally GI/Abdomen: soft, NTND, good bowel sounds, no guarding or rebound /Bladder: no suprapubic tenderness, no CVA or paraspinal tenderness Extermity/Skin: no c/c/e, no obvious rash MSK: FROM x 4 Neuro: CN 2-12 grossly intact, no new focal deficits Psych: calm - Constitutional Vitals: Temp Pulse Resp BP Pulse Ox 98.1 F 69 16 127/62 96 12/02/18 12:10 12/02/18 12:10 12/02/18 12:10 12/02/18 12:10 12/02/18 09:57 Plan Activity: other (no strenous activity unless cleared by Cardiology) Diet: low salt Special Instructions: smoking cessation Follow up with: PRIMARY CARE, [Primary Care Provider] - 7 Days IVORY LAW MD [Staff Physician] - 12/04/18 Prescriptions: Cyclobenzaprine [Flexeril 10 MG TAB] 10 mg PO QHS PRN #10 tablet PRN Reason: Muscle Spasm Nicotine [Habitrol] 14 mg TD QDAY #30 patch hydroCHLOROthiazide [HCTZ] 25 mg PO QDAY #30 guaiFENesin ER [Mucinex ER] 600 mg PO BID PRN #6 tablet PRN Reason: Cough NIFEdipine XL [Procardia Xl] 90 mg PO QDAY #30 Pantoprazole [Protonix] 40 mg PO QDAY #14 tablet Levothyroxine [Synthroid] 150 mcg PO QAM #30 tablet Levothyroxine [Synthroid] 25 mcg PO QAM #30 tablet Xanax TAB 1 mg PO Q6HR PRN #20 tab PRN Reason: Anxiety
== END 2018-12-02 15:02 | disposition home or self-care (01) ==
LOC: ED 16:08 → 4A 19:47
PROVIDERS: ADMIT Internal Medicine; ATTEND Internal Medicine
DX: R07.89 Other chest pain (principal); K21.9 Gastro-esophageal reflux disease without esophagitis; N17.9 Acute kidney failure, unspecified; R74.8 Abnormal levels of other serum enzymes; I10 Essential (primary) hypertension; I25.10 Atherosclerotic heart disease of native coronary artery without angina pectoris; F17.200 Nicotine dependence, unspecified, uncomplicated; R05 Cough; E03.9 Hypothyroidism, unspecified; N28.1 Cyst of kidney, acquired; E66.9 Obesity, unspecified; I25.2 Old myocardial infarction; Z95.1 Presence of aortocoronary bypass graft; Z79.82 Long term (current) use of aspirin; Z90.49 Acquired absence of other specified parts of digestive tract
CPT/HCPCS: 36415; 71046; 78582; 80048; 80053; 83880; 84439; 84443; 84484; 85007; 85025; 85379; 93005; 93010; 94644; 96372; 96374; 96375; 96376; 99284; A9270; A9540; A9558; C9113; G0378; J1170; J1200; J1644; J2930; J3246

== ENCOUNTER 2019-02-11 16:01 | Observation (INO) | payer BC ==
--- NOTE | 2019-02-11 16:29 | Event Note ---
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 Further treatment and workup at subsequent clinical providers discretion. Patient/guardian urged not to elope from the ED as their condition may be serious if not clinically assessed and kate salcido. Initial orders include: labs
[2019-02-11 16:57] LABS: Basophils # (Auto) 0.2 K/mm3 (0.0-0.1); Basophils % (Auto) 1.5 % (0.0-1.8); Eosinophils # (Auto) 0.5 K/mm3 (0.0-0.4); Eosinophils % (Auto) 5.2 % (0.0-4.3); Hematocrit 43.7 % (30.3-42.9); Hemoglobin 14.8 gm/dl (10.1-14.3); Lymphocytes # (Auto) 2.9 K/mm3 (1.2-5.4); Lymphocytes % (Auto) 29.5 % (13.4-35.0); Mean Corpuscular HGB Conc 34 % (30-34); Mean Corpuscular Volume 92 fl (79-97); Monocytes # (Auto) 0.6 K/mm3 (0.0-0.8); Monocytes % (Auto) 6.2 % (0.0-7.3); Platelet Count 488 K/mm3 (140-440); Red Blood Count 4.77 M/mm3 (3.65-5.03); Red Cell Distribution Width 15.7 % (13.2-15.2)
[2019-02-11 17:25] LABS: Alanine Aminotransferase 11 units/L (7-56); Albumin 4.1 g/dL (3.9-5); BUN/Creatinine Ratio 12; Blood Urea Nitrogen 13 mg/dL (7-17); Calcium 9.3 mg/dL (8.4-10.2); Hemolysis Index 13
[2019-02-11 18:33] LABS: Bilirubin,Urine NEG (Negative); Blood,Urine SM (Negative); Color,Urine Yellow (Yellow); Hyaline Casts,Urine 1 /LPF; Urobilinogen,Urine < 2.0 mg/dL (<2.0); WBC,Urine < 1.0 /HPF (0.0-6.0)
[2019-02-11] MEDS ORDERED: ASPIRIN 325 MG TAB PO ONE (22:45)
[2019-02-11] MEDS ORDERED: fentaNYL 100 MCG/2 ML INJ IV ONE (22:45)
[2019-02-11] MEDS ORDERED: ONDANSETRON 4 MG/2 ML INJ IV ONE (22:45)
--- NOTE | 2019-02-11 22:50 | Emergency Department Report ---
HPI - General Chief Complaint: Pain General Time Seen by Provider: 02/11/19 16:24 - HPI HPI: Room 23 The patient is a 53-year-old female presenting with chief complaint of right flank pain and chest pain. Patient states she came to the emergency department because for 1 week she's had a constant pain and right flank described as sharp in nature. Patient states the pain increases with certain movements. Patient denies any preceding trauma. Patient denies dysuria, hematuria or fever. Patient is to nausea but denies vomiting. Patient states while in the waiting room she developed substernal chest pain described as sharp in nature. Patient denies shortness of breath or diaphoresis with the pain but admits to nausea without vomiting. The patient currently gives her chest pain score of 8/10. Patient states she believes her last stress test was approximately one year ago and the last heart cath occurred 1.5 years ago when she had a cardiac stent placed Location: [See above] Duration: [See above] Quality: [See above] Severity: [See above] Timing: [See above] Context: [See above] Modifying factors: [See above] Associated signs and symptoms: [see above] ED Past Medical Hx - Past Medical History Previous Medical History?: Yes Hx Hypertension: Yes Hx Heart Attack/AMI: Yes (2012 and 2013) Hx GERD: Yes Hx Asthma: Yes Additional medical history: CAD, high cholesterol, Hypothyroidism. "multiple renal cysts" - Surgical History Past Surgical History?: Yes Hx Coronary Stent: Yes (03/23 x3) Hx Cholecystectomy: Yes - Family History Family history: no significant - Social History Smoking Status: Current Every Day Smoker (1 pack per day) Substance Use Type: None - Medications Home Medications: Home Medications Medication Instructions Recorded Confirmed Last Taken Type Acetaminophen [Acetaminophen TAB] 2 tab PO Q4H PRN #12 tablet 12/02/18 Unknown Rx Cyclobenzaprine [Flexeril 10 MG 10 mg PO QHS PRN #10 tablet 12/02/18 Unknown Rx TAB] Levothyroxine [Synthroid] 25 mcg PO QAM #30 tablet 12/02/18 Unknown Rx Levothyroxine [Synthroid] 150 mcg PO QAM #30 tablet 12/02/18 Unknown Rx NIFEdipine XL [Procardia Xl] 90 mg PO QDAY #30 12/02/18 Unknown Rx Nicotine [Habitrol] 14 mg TD QDAY #30 patch 12/02/18 Unknown Rx Pantoprazole [Protonix] 40 mg PO QDAY #14 tablet 12/02/18 Unknown Rx Xanax TAB 1 mg PO Q6HR PRN #20 tab 12/02/18 Unknown Rx guaiFENesin ER [Mucinex ER] 600 mg PO BID PRN #6 tablet 12/02/18 Unknown Rx hydroCHLOROthiazide [HCTZ] 25 mg PO QDAY #30 12/02/18 Unknown Rx ED Review of Systems ROS: Stated complaint: LT SIDE PAIN/PELVIC PAIN Other details as noted in HPI Constitutional: denies: diaphoresis Eyes: denies: eye pain ENT: denies: throat pain Respiratory: denies: shortness of breath Cardiovascular: chest pain Endocrine: no symptoms reported Gastrointestinal: abdominal pain, nausea. denies: vomiting Genitourinary: denies: dysuria, hematuria Musculoskeletal: back pain Neurological: denies: headache Physical Exam - Physical Exam Vital Signs: Vital Signs 02/11/19 02/11/19 16:04 22:19 Temperature 97.6 F Pulse Rate 73 79 Respiratory 20 26 H Rate Blood Pressure 203/110 223/115 O2 Sat by Pulse 95 99 Oximetry Physical Exam: GENERAL: The patient is well-developed well-nourished female sitting on stretcher not appearing to be in acute distress. [] HEENT: Normocephalic. Atraumatic. Extraocular motions are intact. Patient has moist mucous membranes. NECK: Supple. Trachea midline CHEST/LUNGS: Clear to auscultation. There is no respiratory distress noted. HEART/CARDIOVASCULAR: Regular. There is no tachycardia. There is no gallop rub or murmur. ABDOMEN: Abdomen is soft, nontender. Patient has normal bowel sounds. There is no abdominal distention. SKIN: There is no rash. There is no edema. There is no diaphoresis. NEURO: The patient is awake, alert, and oriented. The patient is cooperative. The patient has normal speech MUSCULOSKELETAL: There is no evidence of acute injury. ED Course Vital Signs 02/11/19 02/11/19 16:04 22:19 Temperature 97.6 F Pulse Rate 73 79 Respiratory 20 26 H Rate Blood Pressure 203/110 223/115 O2 Sat by Pulse 95 99 Oximetry ED Medical Decision Making - Lab Data Result diagrams: 02/11/19 16:35 02/11/19 16:32 Laboratory Tests 02/11/19 02/11/19 02/11/19 16:32 16:35 18:23 WBC 9.8 RBC 4.77 Hgb 14.8 H Hct 43.7 H MCV 92 MCH 31 MCHC 34 RDW 15.7 H Plt Count 488 H Lymph % (Auto) 29.5 [place] % (Auto) 6.2 Eos % (Auto) 5.2 H Baso % (Auto) 1.5 Lymph # 2.9 [place] # 0.6 Eos # 0.5 H Baso # 0.2 H Seg Neutrophils % 57.6 Seg Neutrophils # 5.6 Sodium 141 Potassium 3.5 L Chloride 103.7 Carbon Dioxide 23 Anion Gap 18 BUN 13 Creatinine 1.1 Estimated GFR > 60 BUN/Creatinine Ratio 12 Glucose 87 Calcium 9.3 Total Bilirubin 0.30 AST 18 ALT 11 Alkaline Phosphatase 125 Total Protein 7.5 Albumin 4.1 Albumin/Globulin Ratio 1.2 Lipase 26 Urine Color Yellow Urine Turbidity Clear Urine pH 7.0 Ur Specific [place] 1.010 Urine Protein 30 mg/dl Urine Glucose (UA) Neg Urine Ketones Neg Urine Blood Sm Urine Nitrite Neg Urine Bilirubin Neg Urine Urobilinogen < 2.0 Ur Leukocyte Esterase Neg Urine WBC (Auto) < 1.0 Urine RBC (Auto) 1.0 U Epithel Cells (Auto) < 1.0 Hyaline Casts 1 - EKG Data -: EKG Interpreted by Me EKG shows normal: sinus rhythm Rate: normal - EKG Data When compared to previous EKG there are: no significant change Interpretation: unchanged when compared t (12/02/2018) - Radiology Data Radiology results: report reviewed (chest x-ray, CT abdomen and pelvis), image reviewed (chest x-ray) interpreted by me: Chest x-ray-no focal infiltrates, no pneumothorax Chest x-ray (read by radiologist)-no acute finding. No significant change CT abdomen and pelvis (read by radiologist) (-no acute findings - Differential Diagnosis renal colic, pyelonephritis, ACS, pericarditis, GERD Critical care attestation.: If time is entered above; I have spent that time in minutes in the direct care of this critically ill patient, excluding procedure time. ED Disposition Clinical Impression: Chest pain, Right flank pain Disposition: DC09 OP ADMIT IP TO THIS HOSP Is pt being admited?: Yes Does the pt Need Aspirin: Yes Condition: Fair Instructions: Chest Pain (ED) Referrals: BRUNA ANGEL MD [Primary Care Provider] - 3-5 Days Time of Disposition: 00:03 (hospitalist notified (Dr. Tracy Escalante))
--- NOTE | 2019-02-11 23:36 | XRay Report ---
CHEST 1 VIEW INDICATION / CLINICAL INFORMATION: chest pain. COMPARISON: 12/01/2018 chest radiograph FINDINGS: SUPPORT DEVICES: None. HEART / MEDIASTINUM: No significant abnormality. LUNGS / PLEURA: No significant pulmonary or pleural abnormality. No pneumothorax. IMPRESSION: No acute finding. No significant change. Signer Name: Umer Serrano MD Signed: 02/11/2019 11:32 PM Workstation Name: [id number]
--- NOTE | 2019-02-11 23:59 | Cat Scan Report ---
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 TECHNIQUE: Axial CT images were obtained through the abdomen and pelvis after 100 mL Omnipaque [address] scans at this location are performed using CT dose reduction for ALARA by means of automated exposure control. COMPARISON: None available. FINDINGS: LOWER CHEST: Mild bibasilar atelectatic changes. No pleural fluid is evident. Normal heart size. Trac e pericardial fluid, probably physiologic. LIVER: No significant abnormality. BILIARY SYSTEM: Mild prominence of intrahepatic and extra hepatic bile ducts may be related to patien t age and/or postcholecystectomy state. PANCREAS: No significant abnormality. SPLEEN: No significant abnormality. ADRENALS: No significant abnormality. KIDNEYS and URETERS: Moderately atrophic right kidney but with symmetric contrast enhancement. There are 2 small, patent renal arteries on the right. 1 patent left renal artery is seen. Probable compens atory hypertrophy of the left kidney. There are homogeneously fluid attenuation cystic structures in both kidneys without perceptible wall thickening, nodularity or septation. Some are too small to riki acterize. Extrarenal pelvis on the right. No hydronephrosis or urinary calculus. STOMACH / BOWEL: No significant abnormality. Normal appendix. PERITONEUM: No free fluid. No free air. No fluid collection. Dropped surgical clip noted in the pelvi s. LYMPH NODES: No adenopathy. VASCULAR STRUCTURES: Moderately advanced atherosclerosis of the infrarenal aorta and iliac arteries w ithout aneurysm. Celiac, SMA and TRACEY are patent. URINARY BLADDER: No significant abnormality. REPRODUCTIVE ORGANS: No significant abnormality. ADDITIONAL FINDINGS: None. SKELETAL SYSTEM: No significant abnormality. IMPRESSION: 1. No acute abnormality. Signer Name: Umer Serrano MD Signed: 02/11/2019 11:55 PM Workstation Name: [id number]
[2019-02-12] MEDS ORDERED: ALBUTEROL 2.5 MG/3 ML NEBU IH PRN (00:19)
[2019-02-12] MEDS ORDERED: ACETAMINOPHEN 325 MG TAB PO PRN (00:19)
[2019-02-12] MEDS ORDERED: hydrALAZINE 20 MG/1 ML INJ IV PRN (00:23)
[2019-02-12] MEDS ORDERED: NITROGLYCERIN 0.4 MG TAB SUBL SL PRN (00:24)
--- NOTE | 2019-02-12 01:44 | History and Physical Report ---
<DOMINGO ROBERTS - Last Filed: 02/12/19 01:52> History of Present Illness Date of examination: 02/12/19 Date of admission: 02/12/19 00:19 Chief complaint: Abdominal pain and chest pain History of present illness: 53-year-old -[place] female who is an ongoing smoker with history of [place] 2, CAD s/p stent 3, hypertension, hypothyroidism and multiple renal cysts who presents to [facility] ED with complaints of right flank pain, nausea, and chest pain. Patient states that she has been experiencing right flank pain for the past week. She describes the pain as sharp. The pain is constant, aggravated with movement, and she rates it 7/10. Pain is aggravated after meal consumption. Patient states while sitting in the waiting room at our facility she started experiencing sharp nonradiating substernal chest pain. She also describes her chest pain as sharp and rates it 8/10. There are no aggravating factors and the pain is relieved with medication. Denies emesis, fever, headache, diarrhea, or recent sick contact. Review of medical record shows patient was admitted on 12/01 with complaints of chest pain. Patient left AMA on 12/02 before work-up was complete. Patient stated that her symptoms resolved and she would follow-up as outpatient with [facility]. I question patient as to whether she Her outpatient appointment with [facility] and she told me now instead she went back to her assistant department manager at [facility]. Patient reports no additional work-up or changes in medication was needed per her assistant department manager. Of note patient was admitted to [facility] in [place] in late November 2018. Patient had a CT scan which showed some pulmonary nodules and was advised to f ollow-up with repeat scan in 6 months. Patient is concerned that her pulmonary nodules may be contributing to her chest pain. We will try to obtain medical records from [facility]. Past History Past Medical History: acute [place] (x2 (2012 and 2013)), CAD, GERD, hypertension, hyperlipidemia, hypothyroidism, other (Asthma, multiple renal cysts) Past Surgical History: cholecystectomy, Other (Stent x3 (03/2013)) Social history: smoking (1 pack/day) Family history: no significant family history Medications and Allergies Allergies Allergy/AdvReac Type Severity Reaction Status Date / Time No Known Allergies Allergy Verified 11/26/16 15:10 Home Medications Medication Instructions Recorded Confirmed Last Taken Type Acetaminophen [Acetaminophen TAB] 2 tab PO Q4H PRN #12 tablet 12/02/18 02/12/19 Unknown Rx Cyclobenzaprine [Flexeril 10 MG 10 mg PO QHS PRN #10 tablet 12/02/18 02/12/19 Unknown Rx TAB] Levothyroxine [Synthroid] 25 mcg PO QAM #30 tablet 12/02/18 02/12/19 Unknown Rx Levothyroxine [Synthroid] 150 mcg PO QAM #30 tablet 12/02/18 02/12/19 Unknown Rx NIFEdipine XL [Procardia Xl] 90 mg PO QDAY #30 12/02/18 02/12/19 Unknown Rx Nicotine [Habitrol] 14 mg TD QDAY #30 patch 12/02/18 02/12/19 Unknown Rx Xanax TAB 1 mg PO Q6HR PRN #20 tab 12/02/18 02/12/19 Unknown Rx AtorvaSTATin 40 mg PO HS 02/12/19 02/12/19 Unknown History Active Meds: Active Medications Acetaminophen (Tylenol) 650 mg PO Q4H PRN PRN Reason: Pain MILD(1-3)/Fever >100.5/[place] Albuterol (Proventil) 2.5 mg IH Q3HRT PRN PRN Reason: Shortness Of Breath Heparin Sodium (Porcine) (Heparin) 5,000 unit SUB-Q Q12HR ROMMEL Hydralazine HCl (Apresoline) 10 mg IV Q4HR PRN PRN Reason: Blood Pressure Hydrochlorothiazide (Hctz) 25 mg PO QDAY [facility] Levothyroxine Sodium (Synthroid) 25 mcg PO QAM@0600 [facility] Levothyroxine Sodium (Synthroid) 150 mcg PO QAM@0600 [facility] Nicotine (Habitrol) 14 mg TD QDAY [facility] Nifedipine (Procardia Xl) 90 mg PO QDAY [facility] Nitroglycerin (Nitrostat) 0.4 mg SL .Q5MIN PRN PRN Reason: Chest Pain Ondansetron HCl (Zofran) 4 mg IV Q8H PRN PRN Reason: Nausea And Vomiting Oxycodone/Acetaminophen (Percocet 5/325) 1 tab PO Q6H PRN PRN Reason: Pain, Moderate (4-6) Pantoprazole Sodium (Protonix) 40 mg PO BID ROMMEL Sodium Chloride (Sodium Chloride Flush Syringe 10 Ml) 10 ml IV BID ROMMEL Sodium Chloride (Sodium Chloride Flush Syringe 10 Ml) 10 ml IV PRN PRN PRN Reason: LINE FLUSH Review of Systems All systems: negative Cardiovascular: chest pain Gastrointestinal: abdominal pain, nausea Exam - Physical Exam Narrative exam: Physical exam General appearance: Present: No acute distress, alert and oriented 3, well- developed, adult female - EENT Eyes: Present: PERRL, EOM intact ENT: hearing intact, missing teeth - Neck Neck: Present: supple, normal ROM - Respiratory Respiratory effort: Non-labored Respiratory: Clear throughout - Cardiovascular Heart rate: 71 (bpm) Rhythm: Sinus rhythm Heart Sounds: Present: S1 & S2. Absent: rub, click - Extremities Extremities: no ischemia, pulses intact, - Peripheral Assessment Peripheral Pulses: within normal limits - Abdominal General gastrointestinal: soft, non-tender, normal bowel sounds - Integumentary Integumentary: Present: warm, dry - Musculoskeletal Musculoskeletal: Able to move all extremities -Neurological Neurological: CN II-XII intact - Psychiatric Psychiatric: cooperative - Constitutional Vitals: Temp Pulse Resp BP Pulse Ox 97.6 F 60 25 H 176/108 97 02/11/19 16:04 02/12/19 01:15 02/12/19 01:15 02/12/19 01:15 02/12/19 01:15 Results - Labs CBC & Chem 7: 02/11/19 16:35 02/11/19 16:32 Labs: Laboratory Last Values WBC 9.8 K/mm3 (4.5-11.0) 02/11/19 16:35 RBC 4.77 M/mm3 (3.65-5.03) 02/11/19 16:35 Hgb 14.8 gm/dl (10.1-14.3) H 02/11/19 16:35 Hct 43.7 % (30.3-42.9) H 02/11/19 16:35 MCV 92 fl (79-97) 02/11/19 16:35 MCH 31 pg (28-32) 02/11/19 16:35 MCHC 34 % (30-34) 02/11/19 16:35 RDW 15.7 % (13.2-15.2) H 02/11/19 16:35 Plt Count 488 K/mm3 (140-440) H 02/11/19 16:35 Lymph % (Auto) 29.5 % (13.4-35.0) 02/11/19 16:35 [place] % (Auto) 6.2 % (0.0-7.3) 02/11/19 16:35 Eos % (Auto) 5.2 % (0.0-4.3) H 02/11/19 16:35 Baso % (Auto) 1.5 % (0.0-1.8) 02/11/19 16:35 Lymph # 2.9 K/mm3 (1.2-5.4) 02/11/19 16:35 [place] # 0.6 K/mm3 (0.0-0.8) 02/11/19 16:35 Eos # 0.5 K/mm3 (0.0-0.4) H 02/11/19 16:35 Baso # 0.2 K/mm3 (0.0-0.1) H 02/11/19 16:35 Seg Neutrophils % 57.6 % (40.0-70.0) 02/11/19 16:35 Seg Neutrophils # 5.6 K/mm3 (1.8-7.7) 02/11/19 16:35 Sodium 141 mmol/L (137-145) 02/11/19 16:32 Potassium 3.5 mmol/L (3.6-5.0) L 02/11/19 16:32 Chloride 103.7 mmol/L (98-107) 02/11/19 16:32 Carbon Dioxide 23 mmol/L (22-30) 02/11/19 16:32 Anion Gap 18 mmol/L 02/11/19 16:32 BUN 13 mg/dL (7-17) 02/11/19 16:32 Creatinine 1.1 mg/dL (0.7-1.2) 02/11/19 16:32 Estimated GFR > 60 ml/min 02/11/19 16:32 BUN/Creatinine Ratio 12 % 02/11/19 16:32 Glucose 87 mg/dL (65-100) 02/11/19 16:32 Calcium 9.3 mg/dL (8.4-10.2) 02/11/19 16:32 Total Bilirubin 0.30 mg/dL (0.1-1.2) 02/11/19 16:32 AST 18 units/L (5-40) 02/11/19 16:32 ALT 11 units/L (7-56) 02/11/19 16:32 Alkaline Phosphatase 125 units/L (35-129) 02/11/19 16:32 Troponin T < 0.010 ng/mL (0.00-0.029) 02/12/19 Unknown Total Protein 7.5 g/dL (6.3-8.2) 02/11/19 16:32 Albumin 4.1 g/dL (3.9-5) 02/11/19 16:32 Albumin/Globulin Ratio 1.2 % 02/11/19 16:32 Lipase 26 units/L (13-60) 02/11/19 16:32 Urine Color Yellow (Yellow) 02/11/19 18:23 Urine Turbidity Clear (Clear) 02/11/19 18:23 Urine pH 7.0 (5.0-7.0) 02/11/19 18:23 Ur Specific [place] 1.010 (1.003-1.030) 02/11/19 18:23 Urine Protein 30 mg/dl mg/dL (Negative) 02/11/19 18:23 Urine Glucose (UA) Neg mg/dL (Negative) 02/11/19 18:23 Urine Ketones Neg mg/dL (Negative) 02/11/19 18:23 Urine Blood Sm (Negative) 02/11/19 18:23 Urine Nitrite Neg (Negative) 02/11/19 18:23 Urine Bilirubin Neg (Negative) 02/11/19 18:23 Urine Urobilinogen < 2.0 mg/dL (<2.0) 02/11/19 18:23 Ur Leukocyte Esterase Neg (Negative) 02/11/19 18:23 Urine WBC (Auto) < 1.0 /HPF (0.0-6.0) 02/11/19 18:23 Urine RBC (Auto) 1.0 /HPF (0.0-6.0) 02/11/19 18:23 U Epithel Cells (Auto) < 1.0 /HPF (0-13.0) 02/11/19 18:23 Hyaline Casts 1 /LPF 02/11/19 18:23 - Imaging and Cardiology Imaging and Cardiology: CT Abdomen/Pelvis: Impression: No acute abnormality CXR: Impression: No acute findings. No significant change Assessment and Plan Assessment and plan: 53-year-old -[place] female who is an ongoing smoker with history of [place] 2, CAD s/p stent 3, hypertension, hypothyroidism and multiple renal cysts who presents to [facility] ED with complaints of right flank pain, nausea, and chest pain. Acute atypical Chest Pain -CXR negative -EKG unrevealing for acute ischemic abnormalities -Initiate chest pain protocol -Continuous telemetry monitoring -Continue supportive care -Pain mgmt -Troponin neg x1; continue to trend -Continue ASA and Statin -Hx abnormal stress test 2015 -Hx of [place] x2 ( 2012& 2013) s/p stent x3 ( 01/2014& 03/2014) -Per pt Echo done in 2014 unsure of results -Follows assistant department manager at [facility] as outpatient -Will defer additional cardiac workup per cardiology recommendations -Cardiology consulted Acute Abdominal Pain -Most Likely GERD -Patient complain of abdominal pain/burning after eating -Start on PPI HTN -Monitor BP -Resume home antihypertensive meds -IV hydralazine when necessary CAD -on ASA and statin Tobacco abuse -Current every day smoker -Counseled for cessation -Nicotine patch when necessary Hypothyroidism -Continue Synthroid DVT PPX -On Heparin Advance Directives: No VTE prophylaxis?: Mechanical Plan of care discussed with patient/family: Yes <QASIM STROUD - Last Filed: 02/12/19 06:50> History of Present Illness Date of admission: 02/12/19 00:19 Medications and Allergies Active Meds: Active Medications Acetaminophen (Tylenol) 650 mg PO Q4H PRN PRN Reason: Pain MILD(1-3)/Fever >100.5/[place] Albuterol (Proventil) 2.5 mg IH Q3HRT PRN PRN Reason: Shortness Of Breath Heparin Sodium (Porcine) (Heparin) 5,000 unit SUB-Q Q12HR [facility] Hydralazine HCl (Apresoline) 10 mg IV Q4HR PRN PRN Reason: Blood Pressure Hydrochlorothiazide (Hctz) 25 mg PO QDAY [facility] Levothyroxine Sodium (Synthroid) 25 mcg PO QAM@0600 [facility] Last Admin: 02/12/19 06:45 Dose: 25 mcg Documented by: Levothyroxine Sodium (Synthroid) 150 mcg PO QAM@0600 [facility] Last Admin: 02/12/19 06:45 Dose: 150 mcg Documented by: Nicotine (Habitrol) 14 mg TD QDAY [place] Nifedipine (Procardia Xl) 90 mg PO QDAY [facility] Nitroglycerin (Nitrostat) 0.4 mg SL .Q5MIN PRN PRN Reason: Chest Pain Ondansetron HCl (Zofran) 4 mg IV Q8H PRN PRN Reason: Nausea And Vomiting Oxycodone/Acetaminophen (Percocet 5/325) 1 tab PO Q6H PRN PRN Reason: Pain, Moderate (4-6) Pantoprazole Sodium (Protonix) 40 mg PO BID ROMM[place] Sodium Chloride (Sodium Chloride Flush Syringe 10 Ml) 10 ml IV BID [facility] Sodium Chloride (Sodium Chloride Flush Syringe 10 Ml) 10 ml IV PRN PRN PRN Reason: LINE FLUSH Exam - Constitutional Vitals: Temp Pulse Resp BP Pulse Ox 97.6 F 66 16 174/96 95 02/11/19 16:04 02/12/19 02:31 02/12/19 02:31 02/12/19 02:31 02/12/19 02:31 Results - Labs CBC & Chem 7: 02/11/19 16:35 02/11/19 16:32 Labs: Laboratory Last Values WBC 9.8 K/mm3 (4.5-11.0) 02/11/19 16:35 RBC 4.77 M/mm3 (3.65-5.03) 02/11/19 16:35 Hgb 14.8 gm/dl (10.1-14.3) H 02/11/19 16:35 Hct 43.7 % (30.3-42.9) H 02/11/19 16:35 MCV 92 fl (79-97) 02/11/19 16:35 MCH 31 pg (28-32) 02/11/19 16:35 MCHC 34 % (30-34) 02/11/19 16:35 RDW 15.7 % (13.2-15.2) H 02/11/19 16:35 Plt Count 488 K/mm3 (140-440) H 02/11/19 16:35 Lymph % (Auto) 29.5 % (13.4-35.0) 02/11/19 16:35 [place] % (Auto) 6.2 % (0.0-7.3) 02/11/19 16:35 Eos % (Auto) 5.2 % (0.0-4.3) H 02/11/19 16:35 Baso % (Auto) 1.5 % (0.0-1.8) 02/11/19 16:35 Lymph # 2.9 K/mm3 (1.2-5.4) 02/11/19 16:35 [place] # 0.6 K/mm3 (0.0-0.8) 02/11/19 16:35 Eos # 0.5 K/mm3 (0.0-0.4) H 02/11/19 16:35 Baso # 0.2 K/mm3 (0.0-0.1) H 02/11/19 16:35 Seg Neutrophils % 57.6 % (40.0-70.0) 02/11/19 16:35 Seg Neutrophils # 5.6 K/mm3 (1.8-7.7) 02/11/19 16:35 Sodium 141 mmol/L (137-145) 02/11/19 16:32 Potassium 3.5 mmol/L (3.6-5.0) L 02/11/19 16:32 Chloride 103.7 mmol/L (98-107) 02/11/19 16:32 Carbon Dioxide 23 mmol/L (22-30) 02/11/19 16:32 Anion Gap 18 mmol/L 02/11/19 16:32 BUN 13 mg/dL (7-17) 02/11/19 16:32 Creatinine 1.1 mg/dL (0.7-1.2) 02/11/19 16:32 Estimated GFR > 60 ml/min 02/11/19 16:32 BUN/Creatinine Ratio 12 % 02/11/19 16:32 Glucose 87 mg/dL (65-100) 02/11/19 16:32 Calcium 9.3 mg/dL (8.4-10.2) 02/11/19 16:32 Total Bilirubin 0.30 mg/dL (0.1-1.2) 02/11/19 16:32 AST 18 units/L (5-40) 02/11/19 16:32 ALT 11 units/L (7-56) 02/11/19 16:32 Alkaline Phosphatase 125 units/L (35-129) 02/11/19 16:32 Total Creatine Kinase 169 units/L (30-135) H 02/12/19 04:59 CK-MB (CK-2) 2.3 ng/mL (0.0-4.0) 02/12/19 04:59 CK-MB (CK-2) Rel Index 1.3 (0-4) 02/12/19 04:59 Troponin T < 0.010 ng/mL (0.00-0.029) 02/12/19 Unknown Total Protein 7.5 g/dL (6.3-8.2) 02/11/19 16:32 Albumin 4.1 g/dL (3.9-5) 02/11/19 16:32 Albumin/Globulin Ratio 1.2 % 02/11/19 16:32 Lipase 26 units/L (13-60) 02/11/19 16:32 Urine Color Yellow (Yellow) 02/11/19 18:23 Urine Turbidity Clear (Clear) 02/11/19 18:23 Urine pH 7.0 (5.0-7.0) 02/11/19 18:23 Ur Specific [place] 1.010 (1.003-1.030) 02/11/19 18:23 Urine Protein 30 mg/dl mg/dL (Negative) 02/11/19 18:23 Urine Glucose (UA) Neg mg/dL (Negative) 02/11/19 18:23 Urine Ketones Neg mg/dL (Negative) 02/11/19 18:23 Urine Blood Sm (Negative) 02/11/19 18:23 Urine Nitrite Neg (Negative) 02/11/19 18:23 Urine Bilirubin Neg (Negative) 02/11/19 18:23 Urine Urobilinogen < 2.0 mg/dL (<2.0) 02/11/19 18:23 Ur Leukocyte Esterase Neg (Negative) 02/11/19 18:23 Urine WBC (Auto) < 1.0 /HPF (0.0-6.0) 02/11/19 18:23 Urine RBC (Auto) 1.0 /HPF (0.0-6.0) 02/11/19 18:23 U Epithel Cells (Auto) < 1.0 /HPF (0-13.0) 02/11/19 18:23 Hyaline Casts 1 /LPF 02/11/19 18:23 Assessment and Plan Assessment and plan: Patient seen and examined, agree with plan as stated above
[2019-02-12] MEDS ORDERED: POTASSIUM CHLORIDE ER 10 MEQ TAB PO ONE (05:11)
[2019-02-12 06:15] LABS: Creatine Kinase MB 2.3 ng/mL (0.0-4.0)
[2019-02-12] MEDS: LEVOTHYROXINE 25 MCG TAB PO SCH (06:45)
[2019-02-12] MEDS: LEVOTHYROXINE 150 MCG TAB PO SCH (06:45)
[2019-02-12] MEDS ORDERED: POTASSIUM CHLORIDE ER 20 MEQ TAB PO ONE (06:48)
[2019-02-12] MEDS ORDERED: oxyCODONE /ACETAMINOPHEN 5-325MG TAB ONE ×2 (08:28→16:21)
[2019-02-12] MEDS ORDERED: hydrALAZINE 20 MG/1 ML INJ ONE (08:28)
[2019-02-12] MEDS: oxyCODONE /ACETAMINOPHEN 5-325MG TAB PO PRN ×2 (08:29→16:21)
[2019-02-12] MEDS ORDERED: NIFEdipine XL 90 MG TAB PO SCH (10:00)
--- NOTE | 2019-02-12 11:13 | Event Note ---
Date: 02/12/19 1-2 week of left flank pain, treated FOR UTI, IMPROVED WITH Muscle relaxants but ran out. NO SOB, NO ORTHOPNEA, NO DIAPHORESIS. if ok with cardiology will discharge and have outpatient follow up
[2019-02-12] MEDS ORDERED: HEPARIN 5,000 UNIT/1 ML VIAL ONE (12:08)
[2019-02-12] MEDS ORDERED: PANTOPRAZOLE 40 MG TAB PO ONE (12:11)
[2019-02-12] MEDS ORDERED: hydroCHLOROthiazide 25 MG TAB ONE (12:11)
[2019-02-12] MEDS: PANTOPRAZOLE 40 MG TAB PO SCH ×2 (12:14→22:50)
[2019-02-12] MEDS: hydroCHLOROthiazide 25 MG TAB PO SCH (12:15)
[2019-02-12] MEDS: HEPARIN 5,000 UNIT/1 ML VIAL SUB-Q SCH ×2 (12:15→22:50)
--- NOTE | 2019-02-12 14:07 | Consultation ---
History of Present Illness Consult date: 02/12/19 Requesting physician: DOMINGO ROBERTS Consult reason: chest pain History of present illness: The pt is a 53 YO female with a past medical history of CAD s/p AMI with PCI in January 2013 and March 2013, HTN, HLP, hypothyroidism, tobacco use. She reports that she is regularly followed by Dr. Garcia of [facility] in [place]. She presented with c/o right flank pain for the past several days and chest pain for the past several weeks. She describes her chest pain as an intermittent midsternal pressure which is sometimes aggravated by coughing or deep breathing. She denies any palpitations, SOB, n/v, diaphoresis, dizziness or syncope. Of note, pt underwent pharmacologic MPI stress test here at [facility] in 06/30/2014 which was markedly abnormal - showed transient LV cavity dilation, medium to large reversible apical defect, medium-sized reversible inferior wall defect, small reversible inferolateral defect, EF 72%. Pt was recommended coronary angiography for definitive diagnosis at that time but ultimately declined C because she preferred to follow up with her primary policy analyst as OP. Pt und erwent C at [facility] on 07/03/2018 which showed left main 20% distal, patent proximal stent to midsegment, patent stent in mid left circ stenosis extending in to OM1, 60% stenosis in distal OM branch, RCA 30% distal PDA stenosis, EF 55- 60%. Past History Past Medical History: acute NE (x2 (2012 and 2013)), CAD, GERD, hypertension, hyperlipidemia, hypothyroidism, other (Asthma, multiple renal cysts) Past Surgical History: cholecystectomy, Other (Stent x3 (03/2013)) Social history: smoking (1 pack/day) Family history: no significant family history Medications and Allergies Allergies Allergy/AdvReac Type Severity Reaction Status Date / Time No Known Allergies Allergy Verified 11/26/16 15:10 Home Medications Medication Instructions Recorded Confirmed Last Taken Type Acetaminophen [Acetaminophen TAB] 2 tab PO Q4H PRN #12 tablet 12/02/18 02/12/19 Unknown Rx Levothyroxine [Synthroid] 25 mcg PO QAM #30 tablet 12/02/18 02/12/19 Unknown Rx Levothyroxine [Synthroid] 150 mcg PO QAM #30 tablet 12/02/18 02/12/19 Unknown Rx NIFEdipine XL [Procardia Xl] 90 mg PO QDAY #30 12/02/18 02/12/19 Unknown Rx Nicotine [Habitrol] 14 mg TD QDAY #30 patch 12/02/18 02/12/19 Unknown Rx Xanax TAB 1 mg PO Q6HR PRN #20 tab 12/02/18 02/12/19 Unknown Rx AtorvaSTATin 40 mg PO HS 02/12/19 02/12/19 Unknown History Cyclobenzaprine [Flexeril 10 MG 10 mg PO QHS PRN #10 tablet 02/12/19 Unknown Rx TAB] hydroCHLOROthiazide [HCTZ] 25 mg PO QDAY #1 tablet 02/12/19 Unknown Rx Active Meds: Active Medications Acetaminophen (Tylenol) 650 mg PO Q4H PRN PRN Reason: Pain MILD(1-3)/Fever >100.5/MONROY Albuterol (Proventil) 2.5 mg IH Q3HRT PRN PRN Reason: Shortness Of Breath Heparin Sodium (Porcine) (Heparin) 5,000 unit SUB-Q Q12HR [facility] Last Admin: 02/12/19 12:15 Dose: 5,000 unit Documented by: Hydralazine HCl (Apresoline) 10 mg IV Q4HR PRN PRN Reason: Blood Pressure Last Admin: 02/12/19 08:29 Dose: 10 mg Documented by: Hydrochlorothiazide (Hctz) 25 mg PO QDAY [facility] Last Admin: 02/12/19 12:15 Dose: 25 mg Documented by: Levothyroxine Sodium (Synthroid) 25 mcg PO QAM@0600 [facility] Last Admin: 02/12/19 06:45 Dose: 25 mcg Documented by: Levothyroxine Sodium (Synthroid) 150 mcg PO QAM@0600 [facility] Last Admin: 02/12/19 06:45 Dose: 150 mcg Documented by: Nicotine (Habitrol) 14 mg TD QDAY [facility] Nifedipine (Procardia Xl) 90 mg PO QDAY [facility] Last Admin: 02/12/19 13:28 Dose: 90 mg Documented by: Nitroglycerin (Nitrostat) 0.4 mg SL .Q5MIN PRN PRN Reason: Chest Pain Ondansetron HCl (Zofran) 4 mg IV Q8H PRN PRN Reason: Nausea And Vomiting Oxycodone/Acetaminophen (Percocet 5/325) 1 tab PO Q6H PRN PRN Reason: Pain, Moderate (4-6) Last Admin: 02/12/19 08:29 Dose: 1 tab Documented by: Pantoprazole Sodium (Protonix) 40 mg PO BID [facility] Last Admin: 02/12/19 12:14 Dose: 40 mg Documented by: Sodium Chloride (Sodium Chloride Flush Syringe 10 Ml) 10 ml IV BID [facility] Last Admin: 02/12/19 10:30 Dose: 10 ml Documented by: Sodium Chloride (Sodium Chloride Flush Syringe 10 Ml) 10 ml IV PRN PRN PRN Reason: LINE FLUSH Review of Systems Constitutional: no weight loss, no weight gain, no fever, no chills, no sweats Ears, nose, mouth and throat: no ear pain, no nose pain, no sinus pressure, no sinus pain Cardiovascular: chest pain, high blood pressure, no orthopnea, no palpitations, no rapid/irregular heart beat, no edema, no syncope, no lightheadedness, no shortness of breath, no dyspnea on exertion Respiratory: shortness of breath, dyspnea on exertion, pain on inspiration (at times), no cough, no congestion, no wheezing Gastrointestinal: no abdominal pain, no nausea, no vomiting, no diarrhea, no constipation, no change in bowel habits Genitourinary Female: flank pain (right sided), no pelvic pain, no dysuria, no urinary frequency, no urgency Musculoskeletal: no neck stiffness, no neck pain, no shooting arm pain, no arm numbness/tingling, no shooting leg pain, no leg numbness/tingling Integumentary: no rash, no pruritis, no redness, no sores, no wounds Neurological: no head injury, no paralysis, no weakness, no parathesias, no numbness, no tingling, no seizures, no syncope Psychiatric: no anxiety Endocrine: no cold intolerance, no heat intolerance Hematologic/Lymphatic: no easy bruising, no easy bleeding Allergic/Immunologic: no urticaria, no wheezing Physical Examination Vital Signs Temp Pulse Resp BP Pulse Ox 97.6 F 73 20 203/110 95 02/11/19 16:04 02/11/19 16:04 02/11/19 16:04 02/11/19 16:04 02/11/19 16:04 General appearance: no acute distress HEENT: Positive: PERRL, Normocephaly, Mucus Membranes Moist Neck: Positive: neck supple, trachea midline Cardiac: Positive: Reg Rate and Rhythm, S1/S2 Lungs: Positive: Decreased Breath Sounds Neuro: Positive: Grossly Intact Abdomen: Negative: Tender Skin: Negative: Rash Musculoskeletal: No Pain Extremities: Absent: edema Results 02/11/19 16:35 02/11/19 16:32 Cardiac Enzymes 02/11/19 02/12/19 Range/Units 16:32 04:59 AST 18 (5-40) units/L CK-MB (CK-2) 2.3 (0.0-4.0) ng/mL CBC 02/11/19 Range/Units 16:35 WBC 9.8 (4.5-11.0) K/mm3 RBC 4.77 (3.65-5.03) M/mm3 Hgb 14.8 H (10.1-14.3) gm/dl Hct 43.7 H (30.3-42.9) % Plt Count 488 H (140-440) K/mm3 Lymph # 2.9 (1.2-5.4) K/mm3 [place] # 0.6 (0.0-0.8) K/mm3 Eos # 0.5 H (0.0-0.4) K/mm3 Baso # 0.2 H (0.0-0.1) K/mm3 Comprehensive Metabolic Panel 02/11/19 Range/Units 16:32 Sodium 141 (137-145) mmol/L Potassium 3.5 L (3.6-5.0) mmol/L Chloride 103.7 (98-107) mmol/L Carbon Dioxide 23 (22-30) mmol/L BUN 13 (7-17) mg/dL Creatinine 1.1 (0.7-1.2) mg/dL Glucose 87 (65-100) mg/dL Calcium 9.3 (8.4-10.2) mg/dL AST 18 (5-40) units/L ALT 11 (7-56) units/L Alkaline Phosphatase 125 (35-129) units/L Total Protein 7.5 (6.3-8.2) g/dL Albumin 4.1 (3.9-5) g/dL - Imaging and Cardiology Echo: pending EKG: report reviewed, image reviewed EKG interpretations - Telemetry EKG Rhythm: Sinus Rhythm - EKG Sinus rhythms and dysrhythmias: sinus rhythm Assessment and Plan AMI r/u. However, given clinical presentation, h/o CAD and h/o abnormal stress test, coronary angiography recommended for definitive diagnosis. Indications, po tential risks and benefits of LHC reviewed with pt and she is agreeable to proceed with LHC in AM. NPO after MN. Optimize anti-ischemic regimen. Obtain echo. Further recs to follow per hospital course. The patient has been seen in conjunction with Dr. Rome who agrees with the assessment and plan of care. - Patient Problems (1) Chest pain Current Visit: Yes Status: Acute (2) Right flank pain Current Visit: Yes Status: Acute (3) Abnormal stress test Current Visit: Yes Status: Chronic (4) CAD (coronary artery disease) Current Visit: Yes Status: Chronic (5) History of coronary artery stent placement Current Visit: Yes Status: Chronic (6) Hypertension Current Visit: Yes Status: Chronic (7) Hyperlipidemia Current Visit: Yes Status: Chronic (8) Hypothyroidism Current Visit: Yes Status: Chronic (9) Tobacco use Current Visit: Yes Status: Chronic
[2019-02-12] MEDS: NICOTINE 14 MG/24 HR PATCH TD SCH (16:08)
--- NOTE | 2019-02-12 19:53 | Progress Note ---
Assessment and Plan Assessment and plan: 53-year-old -[place] female who is an ongoing smoker with history of MS 2, CAD s/p stent 3, hypertension, hypothyroidism and multiple renal cysts who presents to [facility] ED with complaints of right flank pain, nausea, and chest pain. Acute atypical Chest Pain Likely secondary to costochondritis -Patient has significant risk factors, and Also multiple stents -CXR negative -EKG unrevealing for acute ischemic abnormalities -Initiate chest pain protocol -Continuous telemetry monitoring -Continue supportive care -Pain mgmt -Troponin neg x1; continue to trend -Continue ASA and Statin -Hx abnormal stress test 2015 -Hx of MS x2 ( 2012& 2013) s/p stent x3 ( 01/2014& 03/2014) -Per pt Echo done in 2014 unsure of results -Follows net mender at [facility] as outpatient -Will defer additional cardiac workup per cardiology recommendations -Cardiology consulted Acute Abdominal Pain -Most Likely GERD -Patient complain of abdominal pain/burning after eating -Start on PPI HTN -Monitor BP -Resume home antihypertensive meds -IV hydralazine when necessary CAD -on ASA and statin Tobacco abuse -Current every day smoker -Counseled for cessation for 15 mins and she verbalized understanding -Nicotine patch when necessary Hypothyroidism -Continue Synthroid DVT PPX -On Heparin History Interval history: Patient seen and examined today resting comfortably during my exam no new complaints noted reports flank pain that has been ongoing for a week and a half was recently started on Flexeril with resolution but she ran out of medications. Patient unfortunately has severe coronary 3 disease with a recent positive stress test and a recent stent placement at outside hospital. She denies any orthopnea PND diaphoresis at this time. Hospitalist Physical - Physical exam Narrative exam: VITAL SIGNS: Reviewed. GENERAL: The patient appears normally developed, Vital signs as documented. HEAD: No signs of head trauma. EYES: Pupils are equal. Extraocular motions intact. EARS: Hearing grossly intact. MOUTH: Oropharynx is normal. NECK: No adenopathy, no JVD. CHEST: Chest with clear breath sounds bilaterally. No wheezes, rales, or rhonchi. CARDIAC: Regular rate and rhythm. S1 and S2, without murmurs, gallops, or rubs. VASCULAR: No Edema. Peripheral pulses normal and equal in all extremities. ABDOMEN: Soft, non tender and non distended. No rebound or guarding, and no masses palpated. Bowel Sounds normal. MUSCULOSKELETAL: Good range of motion of all major joints. Extremities without clubbing, cyanosis or edema. NEUROLOGIC EXAM: Alert and oriented x 3 No focal sensory or strength deficits. Speech normal. Follows commands. PSYCHIATRIC: Mood normal. SKIN: detial exam as documented in skin assessment - Constitutional Vitals: Temp Pulse Resp BP Pulse Ox 98.0 F 85 19 155/99 98 02/12/19 17:30 02/12/19 17:51 02/12/19 17:30 02/12/19 17:51 02/12/19 17:51 General appearance: Present: no acute distress Results - Labs CBC & Chem 7: 02/11/19 16:35 02/11/19 16:32 Labs: Laboratory Last Values WBC 9.8 K/mm3 (4.5-11.0) 02/11/19 16:35 RBC 4.77 M/mm3 (3.65-5.03) 02/11/19 16:35 Hgb 14.8 gm/dl (10.1-14.3) H 02/11/19 16:35 Hct 43.7 % (30.3-42.9) H 02/11/19 16:35 MCV 92 fl (79-97) 02/11/19 16:35 MCH 31 pg (28-32) 02/11/19 16:35 MCHC 34 % (30-34) 02/11/19 16:35 RDW 15.7 % (13.2-15.2) H 02/11/19 16:35 Plt Count 488 K/mm3 (140-440) H 02/11/19 16:35 Lymph % (Auto) 29.5 % (13.4-35.0) 02/11/19 16:35 [place] % (Auto) 6.2 % (0.0-7.3) 02/11/19 16:35 Eos % (Auto) 5.2 % (0.0-4.3) H 02/11/19 16:35 Baso % (Auto) 1.5 % (0.0-1.8) 02/11/19 16:35 Lymph # 2.9 K/mm3 (1.2-5.4) 02/11/19 16:35 [place] # 0.6 K/mm3 (0.0-0.8) 02/11/19 16:35 Eos # 0.5 K/mm3 (0.0-0.4) H 02/11/19 16:35 Baso # 0.2 K/mm3 (0.0-0.1) H 02/11/19 16:35 Seg Neutrophils % 57.6 % (40.0-70.0) 02/11/19 16:35 Seg Neutrophils # 5.6 K/mm3 (1.8-7.7) 02/11/19 16:35 Sodium 141 mmol/L (137-145) 02/11/19 16:32 Potassium 3.5 mmol/L (3.6-5.0) L 02/11/19 16:32 Chloride 103.7 mmol/L (98-107) 02/11/19 16:32 Carbon Dioxide 23 mmol/L (22-30) 02/11/19 16:32 Anion Gap 18 mmol/L 02/11/19 16:32 BUN 13 mg/dL (7-17) 02/11/19 16:32 Creatinine 1.1 mg/dL (0.7-1.2) 02/11/19 16:32 Estimated GFR > 60 ml/min 02/11/19 16:32 BUN/Creatinine Ratio 12 % 02/11/19 16:32 Glucose 87 mg/dL (65-100) 02/11/19 16:32 Calcium 9.3 mg/dL (8.4-10.2) 02/11/19 16:32 Total Bilirubin 0.30 mg/dL (0.1-1.2) 02/11/19 16:32 AST 18 units/L (5-40) 02/11/19 16:32 ALT 11 units/L (7-56) 02/11/19 16:32 Alkaline Phosphatase 125 units/L (35-129) 02/11/19 16:32 Total Creatine Kinase 169 units/L (30-135) H 02/12/19 04:59 CK-MB (CK-2) 2.3 ng/mL (0.0-4.0) 02/12/19 04:59 CK-MB (CK-2) Rel Index 1.3 (0-4) 02/12/19 04:59 Troponin T < 0.010 ng/mL (0.00-0.029) 02/12/19 Unknown Total Protein 7.5 g/dL (6.3-8.2) 02/11/19 16:32 Albumin 4.1 g/dL (3.9-5) 02/11/19 16:32 Albumin/Globulin Ratio 1.2 % 02/11/19 16:32 Lipase 26 units/L (13-60) 02/11/19 16:32 Urine Color Yellow (Yellow) 02/11/19 18:23 Urine Turbidity Clear (Clear) 02/11/19 18:23 Urine pH 7.0 (5.0-7.0) 02/11/19 18:23 Ur Specific [place] 1.010 (1.003-1.030) 02/11/19 18:23 Urine Protein 30 mg/dl mg/dL (Negative) 02/11/19 18:23 Urine Glucose (UA) Neg mg/dL (Negative) 02/11/19 18:23 Urine Ketones Neg mg/dL (Negative) 02/11/19 18:23 Urine Blood Sm (Negative) 02/11/19 18:23 Urine Nitrite Neg (Negative) 02/11/19 18:23 Urine Bilirubin Neg (Negative) 02/11/19 18:23 Urine Urobilinogen < 2.0 mg/dL (<2.0) 02/11/19 18:23 Ur Leukocyte Esterase Neg (Negative) 02/11/19 18:23 Urine WBC (Auto) < 1.0 /HPF (0.0-6.0) 02/11/19 18:23 Urine RBC (Auto) 1.0 /HPF (0.0-6.0) 02/11/19 18:23 U Epithel Cells (Auto) < 1.0 /HPF (0-13.0) 02/11/19 18:23 Hyaline Casts 1 /LPF 02/11/19 18:23 Active Medications - Current Medications Current Medications: Generic Name Dose Route Start Last Admin Trade Name Freq PRN Reason Stop Dose Admin Acetaminophen 650 mg 02/12/19 00:19 Tylenol PO Q4H PRN Pain MILD(1-3)/Fever >100.5/MONROY Albuterol 2.5 mg 02/12/19 00:19 Proventil IH Q3HRT PRN Shortness Of Breath Aspirin 325 mg 02/13/19 10:00 Aspirin PO QDAY ROMMEL Atorvastatin Calcium 40 mg 02/12/19 22:00 Lipitor PO QHS ROMMEL Heparin Sodium (Porcine) 5,000 unit 02/12/19 10:00 02/12/19 12:15 Heparin SUB-Q 5,000 unit Q12HR [facility] Administration Hydralazine HCl 10 mg 02/12/19 00:23 02/12/19 08:29 Apresoline IV 10 mg Q4HR PRN Administration Blood Pressure Hydrochlorothiazide 25 mg 02/12/19 10:00 02/12/19 12:15 Hctz PO 25 mg QDAY ROMMEL Administration Sodium Chloride 500 mls @ 50 mls/hr 02/12/19 15:00 Nacl 0.9% 500 Ml IV 02/13/19 00:59 DIRECT ROMMEL Levothyroxine Sodium 25 mcg 02/12/19 06:00 02/12/19 06:45 Synthroid PO 25 mcg QAM@0600 [facility] Administration Levothyroxine Sodium 150 mcg 02/12/19 06:00 02/12/19 06:45 Synthroid PO 150 mcg QAM@0600 [facility] Administration Metoprolol Tartrate 25 mg 02/12/19 22:00 Metoprolol PO BID [facility] Nicotine 14 mg 02/12/19 10:00 02/12/19 16:08 Habitrol TD 14 mg QDAY [facility] Administration Nitroglycerin 0.4 mg 02/12/19 00:24 Nitrostat SL .Q5MIN PRN Chest Pain Ondansetron HCl 4 mg 02/12/19 00:19 Zofran IV Q8H PRN Nausea And Vomiting Oxycodone/Acetaminophen 1 tab 02/12/19 00:19 02/12/19 16:21 Percocet 5/325 PO 1 tab Q6H PRN Administration Pain, Moderate (4-6) Pantoprazole Sodium 40 mg 02/12/19 10:00 02/12/19 12:14 Protonix PO 40 mg BID [facility] Administration Sodium Chloride 10 ml 02/12/19 10:00 02/12/19 10:30 Sodium Chloride Flush Syringe 10 Ml IV 10 ml BID [facility] Administration Sodium Chloride 10 ml 02/12/19 00:19 Sodium Chloride Flush Syringe 10 Ml IV PRN PRN LINE FLUSH
[2019-02-12] MEDS: METOPROLOL TARTRATE 25 MG TAB PO SCH (22:50)
[2019-02-13] MEDS: SODIUM CHLORIDE 0.9% 500 ML 500 ML IV SCH ×2 (00:13→08:40)
[2019-02-13] MEDS: ONDANSETRON 4 MG/2 ML INJ IV PRN ×2 (00:14→22:04)
[2019-02-13] MEDS: LEVOTHYROXINE 25 MCG TAB PO SCH (06:59)
[2019-02-13] MEDS: LEVOTHYROXINE 150 MCG TAB PO SCH (06:59)
[2019-02-13 07:14] LABS: Basophils # (Auto) 0.1 K/mm3 (0.0-0.1); Basophils % (Auto) 1.3 % (0.0-1.8); Eosinophils # (Auto) 0.7 K/mm3 (0.0-0.4); Eosinophils % (Auto) 5.9 % (0.0-4.3); Hematocrit 45.4 % (30.3-42.9); Hemoglobin 15.4 gm/dl (10.1-14.3); Lymphocytes # (Auto) 2.1 K/mm3 (1.2-5.4); Mean Corpuscular HGB Conc 34 % (30-34); Mean Corpuscular Volume 92 fl (79-97); Monocytes # (Auto) 0.7 K/mm3 (0.0-0.8); Monocytes % (Auto) 6.2 % (0.0-7.3); Platelet Count 488 K/mm3 (140-440); Red Blood Count 4.95 M/mm3 (3.65-5.03)
[2019-02-13 07:25] LABS: INR 0.92 (0.87-1.13)
[2019-02-13 07:27] LABS: BUN/Creatinine Ratio 14; Blood Urea Nitrogen 14 mg/dL (7-17); Calcium 9.5 mg/dL (8.4-10.2); Hemolysis Index 14
[2019-02-13] MEDS ORDERED: ASPIRIN 325 MG TAB ONE (08:38)
[2019-02-13] MEDS ORDERED: SODIUM CHLORIDE 0.9% 500 ML 500 ML ONE (08:38)
[2019-02-13] MEDS: ASPIRIN 325 MG TAB PO SCH ×2 (08:39→12:04)
[2019-02-13] MEDS ORDERED: HEPARIN/NS 5000 UNIT/500ML 1,000 ML IR ONE (09:45)
[2019-02-13] MEDS: MIDAZOLAM 2 MG/2 ML INJ ONE ×2 (10:09→10:24)
[2019-02-13] MEDS: fentaNYL 100 MCG/2 ML INJ ONE ×2 (10:09→10:24)
[2019-02-13] MEDS: LIDOCAINE (2%) 20 MG/1 ML VIAL 20 ML MDV INFILTRATI ONE ×2 (10:10→10:28)
[2019-02-13] MEDS: HEPARIN 10,000 UNITS/10 ML VIAL ONE ×2 (10:10→10:29)
[2019-02-13] MEDS: VERAPAMIL 5 MG/2 ML INJ ONE ×2 (10:10→10:29)
[2019-02-13] MEDS: hydroCHLOROthiazide 25 MG TAB PO SCH (12:04)
[2019-02-13] MEDS: METOPROLOL TARTRATE 25 MG TAB PO SCH ×2 (12:04→21:49)
[2019-02-13] MEDS: PANTOPRAZOLE 40 MG TAB PO SCH ×2 (12:04→21:51)
[2019-02-13] MEDS: HEPARIN 5,000 UNIT/1 ML VIAL SUB-Q SCH ×2 (12:05→21:51)
--- NOTE | 2019-02-13 13:04 | Progress Note ---
Assessment and Plan S/p [facility] this AM which showed multivessel CAD, including left main disease. Pt to be tx to [place] where Dr. Gómez will accept for revascularization. The patient has been seen in conjunction with Dr. Rome who agrees with the assessment and plan of care. - Patient Problems (1) Chest pain Current Visit: Yes Status: Acute (2) Right flank pain Current Visit: Yes Status: Acute (3) Abnormal stress test Current Visit: Yes Status: Chronic (4) CAD (coronary artery disease) Current Visit: Yes Status: Chronic (5) History of coronary artery stent placement Current Visit: Yes Status: Chronic (6) Hypertension Current Visit: Yes Status: Chronic (7) Hyperlipidemia Current Visit: Yes Status: Chronic (8) Hypothyroidism Current Visit: Yes Status: Chronic (9) Tobacco use Current Visit: Yes Status: Chronic Subjective Date of service: 02/13/19 Principal diagnosis: cp Interval history: pt for [facility] today. no current complaints. noted to have apparent run of 19 beat NSVT this AM, pt asymptomatic. Objective Last Vital Signs Temp 97.6 F 02/13/19 03:51 Pulse 66 02/13/19 03:51 Resp 20 02/13/19 03:51 BP 141/77 02/13/19 03:51 Pulse Ox 92 02/13/19 03:51 - Physical Examination General: No Apparent Distress HEENT: Positive: PERRL, Normocephaly, Mucus Membranes Moist Neck: Positive: neck supple, trachea midline Cardiac: Positive: Reg Rate and Rhythm, S1/S2 Lungs: Positive: Decreased Breath Sounds Neuro: Positive: Grossly Intact Abdomen: Negative: Tender Skin: Negative: Rash Musculoskeletal: No Pain Extremities: Absent: edema - Labs and Meds Coagulation 02/13/19 Range/Units 06:57 PT 12.4 (12.2-14.9) Sec. INR 0.92 (0.87-1.13) CBC 02/13/19 Range/Units 06:57 WBC 11.1 H (4.5-11.0) K/mm3 RBC 4.95 (3.65-5.03) M/mm3 Hgb 15.4 H (10.1-14.3) gm/dl Hct 45.4 H (30.3-42.9) % Plt Count 488 H (140-440) K/mm3 Lymph # 2.1 (1.2-5.4) K/mm3 [place] # 0.7 (0.0-0.8) K/mm3 Eos # 0.7 H (0.0-0.4) K/mm3 Baso # 0.1 (0.0-0.1) K/mm3 Comprehensive Metabolic Panel 02/13/19 Range/Units 06:57 Sodium 138 (137-145) mmol/L Potassium 3.4 L (3.6-5.0) mmol/L Chloride 99.9 (98-107) mmol/L Carbon Dioxide 23 (22-30) mmol/L BUN 14 (7-17) mg/dL Creatinine 1.0 (0.7-1.2) mg/dL Glucose 97 (65-100) mg/dL Calcium 9.5 (8.4-10.2) mg/dL - Imaging and Cardiology EKG: report reviewed, image reviewed Echo: pending - EKG Sinus rhythms and dysrhythmias: sinus rhythm
--- NOTE | 2019-02-13 13:06 | Cardiac Catherization Report ---
INDICATIONS FOR PROCEDURE: The patient is a 53-year-old Afro-Irish female with history of acute myocardial infarction and PCI in 01/2013 and also again in 03/2013 with history of hypertension, hyperlipidemia, hypothyroidism, and chronic smoking, being followed by Dr. Garcia of [facility]. She was evaluated for right flank pain and also she developed chest pain while in the Emergency Room. On questioning, the patient says she does get chest tightness and shortness of breath with moderate exertion. She was noted to have abnormal nuclear imaging in 06/2014, which showed transient LV cavity dilation, medium to large reversible apical defect, small reversible inferolateral defect. She was recommended cardiac catheterization at that time, but she did not have the cardiac catheterization performed. The patient underwent left heart catheterization at [facility] on 07/03/2018, which showed left main to be 20% distal, patent proximal stent mid segment, patent stent in the mid left circumflex, stenosis extending into the OM, 60% stenosis in the distal OM and RCA and distal PDA stenosis noted. Presently, the patient is having symptoms of chest pain, shortness of breath as mentioned above with moderate exertion. Because of her above symptomatology and previous abnormality, the patient is scheduled for cardiac catheterization for definitive diagnosis and treatment. The patient is aware of the procedure, potential complications and alternatives of therapy available. DESCRIPTION OF PROCEDURE: The patient was brought to the catheterization laboratory in a fasting condition. The patient was evaluated for moderate sedation and was felt to be appropriate candidate for moderate sedation and received 1 mg of Versed and 50 mg of fentanyl. Subsequently, local anesthesia was given in the right wrist area followed by obtaining the right radial access using 21-gauge arterial puncture needle. Subsequently, a 5-Rwandan slender sheath was introduced. A 5-Rwandan multipurpose catheter was used to obtain the angiograms of the left coronary artery in multiple views and angiograms of the right coronary artery in multiple views followed by left ventriculogram done in THORPE projection using hand injection. At the end of the procedure, catheter and sheath were removed and good hemostasis was achieved with application of radial band. The patient tolerated the procedure well. No untoward complications were noted. The patient was monitored for side effects from moderate sedation starting at 10:24 a.m. until 10:41 a.m. During this period, the patient was monitored with pulse oximetry, EKG and hemodynamic monitoring. The patient tolerated the procedure well. The patient at the end of the procedure is communicating normally, breathing normally and no focal deficits were noted. The patient was transferred to the room in stable condition. Following findings were noted. HEMODYNAMICS: 1. Opening aortic pressure 169/95, left ventricular pressure 171/19. No gradient across the aortic valve. Estimated ejection fraction 65%. 2. Left ventriculogram done in THORPE projection showed normal sized left ventricle with normal contractility. End-diastolic and systolic volumes are normal. Mitral regurgitation could not be evaluated because of limited amount of dye injected. 3. Right coronary artery dominant vessel arises normally from right coronary cusp. This shows a distal 50-60% smooth lesion in addition to 60-70% segmental lesion prior to the origin of the PDA. PDA itself shows 70% mid lesion. 4. Left coronary artery arises normally from left coronary cusp. Proximal part of the left main is very large, but distally it narrows down to 50-60% smooth lesion. LAD shows a long stent in the proximal and mid area. This shows moderate 40% in-stent restenosis. Very distally near the apical part, LAD has a 90% focal stenosis in very distal LAD mainly supplying the inferior septum, is a moderate sized vessel. Circumflex artery shows a long stent starting in the mid circumflex into the large OM1 branch. Distally, this stent has 80% focal in-stent restenosis. Circumflex artery itself in the AV groove at the bifurcation into OM1 and distal circumflex showed 60% smooth lesion at ostium and also there is 80% focal lesion in the very distal circumflex prior to giving rise to a fairly large posterolateral branch. 5. Collaterals none. FINAL IMPRESSION: Normal sized left ventricle with normal contractility. Coronary artery showed significant disease involving distal left main 60% or so smooth in addition to a patent stent in the mid distal LAD, 40% in-stent stenosis with a very focal 90% stenosis distally in the LAD. Circumflex artery shows focal in-stent restenosis in the OM1 in addition to a 60% lesion of the circumflex in the AV groove at the origin of the OM1 in addition to 80% distal lesion. Dominant RCA shows moderate distal disease and also 70% long segmental PDA lesion. The patient at this time has normal left ventricular systolic function with significant angiographic stenosis of the distal left main and multivessel disease. Considering the above angiographic picture, it was felt the patient would benefit from revascularization, maybe surgically, even though multivessel coronary intervention can be performed. With the distal left main lesion, it was felt that the patient would benefit from surgery. Discussed with the patient and her . They are agreeable to have surgical evaluation. The patient will be transferred to [facility]. No untoward complications were noted. The patient was transferred to the room in stable condition. Findings were explained in detail to the patient and her . JOB# [id number] MINI/JAYLEN RIVERA
[2019-02-13] MEDS: oxyCODONE /ACETAMINOPHEN 5-325MG TAB PO PRN ×2 (13:19→22:04)
[2019-02-13] MEDS: NICOTINE 14 MG/24 HR PATCH TD SCH (13:19)
--- NOTE | 2019-02-13 17:36 | Progress Note ---
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 * /p [facility] this AM which showed multivessel CAD, including left main disease. Pt to be tx to [place] where Dr. Gómez will accept for revascularization. 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 at [facility] as outpatient -Will defer additional cardiac workup per cardiology recommendations -Cardiology consulted Acute Abdominal Pain -Most Likely GERD -Patient complain of abdominal pain/burning after eating -Start on PPI HTN -Monitor BP -Resume home antihypertensive meds -IV hydralazine when necessary CAD -on ASA and statin Tobacco abuse -Current every day smoker -Counseled for cessation for 15 mins and she verbalized understanding -Nicotine patch when necessary Hypothyroidism -Continue Synthroid DVT PPX -On Heparin Hospitalist Physical - Constitutional Vitals: Temp Pulse Resp BP Pulse Ox 97.6 F 66 20 141/77 92 02/13/19 03:51 02/13/19 03:51 02/13/19 03:51 02/13/19 03:51 02/13/19 03:51 General appearance: Present: no acute distress Results - Labs CBC & Chem 7: 02/13/19 06:57 02/13/19 06:57 Labs: Laboratory Last Values WBC 11.1 K/mm3 (4.5-11.0) H 02/13/19 06:57 RBC 4.95 M/mm3 (3.65-5.03) 02/13/19 06:57 Hgb 15.4 gm/dl (10.1-14.3) H 02/13/19 06:57 Hct 45.4 % (30.3-42.9) H 02/13/19 06:57 MCV 92 fl (79-97) 02/13/19 06:57 MCH 31 pg (28-32) 02/13/19 06:57 MCHC 34 % (30-34) 02/13/19 06:57 RDW 16.0 % (13.2-15.2) H 02/13/19 06:57 Plt Count 488 K/mm3 (140-440) H 02/13/19 06:57 Lymph % (Auto) 19.0 % (13.4-35.0) 02/13/19 06:57 [place] % (Auto) 6.2 % (0.0-7.3) 02/13/19 06:57 Eos % (Auto) 5.9 % (0.0-4.3) H 02/13/19 06:57 Baso % (Auto) 1.3 % (0.0-1.8) 02/13/19 06:57 Lymph # 2.1 K/mm3 (1.2-5.4) 02/13/19 06:57 [place] # 0.7 K/mm3 (0.0-0.8) 02/13/19 06:57 Eos # 0.7 K/mm3 (0.0-0.4) H 02/13/19 06:57 Baso # 0.1 K/mm3 (0.0-0.1) 02/13/19 06:57 Seg Neutrophils % 67.6 % (40.0-70.0) 02/13/19 06:57 Seg Neutrophils # 7.5 K/mm3 (1.8-7.7) 02/13/19 06:57 PT 12.4 Sec. (12.2-14.9) 02/13/19 06:57 INR 0.92 (0.87-1.13) 02/13/19 06:57 Sodium 138 mmol/L (137-145) 02/13/19 06:57 Potassium 3.4 mmol/L (3.6-5.0) L 02/13/19 06:57 Chloride 99.9 mmol/L (98-107) 02/13/19 06:57 Carbon Dioxide 23 mmol/L (22-30) 02/13/19 06:57 Anion Gap 19 mmol/L 02/13/19 06:57 BUN 14 mg/dL (7-17) 02/13/19 06:57 Creatinine 1.0 mg/dL (0.7-1.2) 02/13/19 06:57 Estimated GFR > 60 ml/min 02/13/19 06:57 BUN/Creatinine Ratio 14 % 02/13/19 06:57 Glucose 97 mg/dL (65-100) 02/13/19 06:57 POC Glucose 82 (70-105) 02/13/19 12:36 Calcium 9.5 mg/dL (8.4-10.2) 02/13/19 06:57 Total Bilirubin 0.30 mg/dL (0.1-1.2) 02/11/19 16:32 AST 18 units/L (5-40) 02/11/19 16:32 ALT 11 units/L (7-56) 02/11/19 16:32 Alkaline Phosphatase 125 units/L (35-129) 02/11/19 16:32 Total Creatine Kinase 169 units/L (30-135) H 02/12/19 04:59 CK-MB (CK-2) 2.3 ng/mL (0.0-4.0) 02/12/19 04:59 CK-MB (CK-2) Rel Index 1.3 (0-4) 02/12/19 04:59 Troponin T < 0.010 ng/mL (0.00-0.029) 02/12/19 Unknown Total Protein 7.5 g/dL (6.3-8.2) 02/11/19 16:32 Albumin 4.1 g/dL (3.9-5) 02/11/19 16:32 Albumin/Globulin Ratio 1.2 % 02/11/19 16:32 Lipase 26 units/L (13-60) 02/11/19 16:32 Urine Color Yellow (Yellow) 02/11/19 18:23 Urine Turbidity Clear (Clear) 02/11/19 18: Urine pH 7.0 (5.0-7.0) 02/11/19 18:23 Ur Specific [place] 1.010 (1.003-1.030) 02/11/19 18:23 Urine Protein 30 mg/dl mg/dL (Negative) 02/11/19 18: Urine Glucose (UA) Neg mg/dL (Negative) 02/11/19 18:23 Urine Ketones Neg mg/dL (Negative) 02/11/19 18:23 Urine Blood Sm (Negative) 02/11/19 18:23 Urine Nitrite Neg (Negative) 02/11/19 18:23 Urine Bilirubin Neg (Negative) 02/11/19 18:23 Urine Urobilinogen < 2.0 mg/dL (<2.0) 02/11/19 18:23 Ur Leukocyte Esterase Neg (Negative) 02/11/19 18:23 Urine WBC (Auto) < 1.0 /HPF (0.0-6.0) 02/11/19 18:23 Urine RBC (Auto) 1.0 /HPF (0.0-6.0) 02/11/19 18: U Epithel Cells (Auto) < 1.0 /HPF (0-13.0) 02/11/19 18: Hyaline Casts 1 /LPF 02/11/19 18:23 Active Medications - Current Medications Current Medications: Generic Name Dose Route Start Last Admin Trade Name Freq PRN Reason Stop Dose Admin Acetaminophen 650 mg 02/12/19 00:19 Tylenol PO Q4H PRN Pain MILD(1-3)/Fever >100.5/MONROY Albuterol 2.5 mg 02/12/19 00:19 Proventil IH Q3HRT PRN Shortness Of Breath Aspirin 325 mg 02/13/19 10:00 02/13/19 12:04 Aspirin PO 325 mg QDAY ROMMEL Administration Atorvastatin Calcium 40 mg 02/12/19 22:00 02/12/19 22:50 Lipitor PO 40 mg QHS ROMMEL Administration Heparin Sodium (Porcine) 5,000 unit 02/12/19 10:00 02/13/19 12:05 Heparin SUB-Q 5,000 unit Q12HR ROMMEL Administration Hydralazine HCl 10 mg 02/12/19 00:23 02/12/19 08:29 Apresoline IV 10 mg Q4HR PRN Administration Blood Pressure Hydrochlorothiazide 25 mg 02/12/19 10:00 02/13/19 12:04 Hctz PO 25 mg QDAY ROMMEL Administration Levothyroxine Sodium 25 mcg 02/12/19 06:00 02/13/19 06:59 Synthroid PO 25 mcg QAM@0600 ROMMEL Administration Levothyroxine Sodium 150 mcg 02/12/19 06:00 02/13/19 06:59 Synthroid PO 150 mcg QAM@0600 ROMMEL Administration Metoprolol Tartrate 25 mg 02/12/19 22:00 02/13/19 12:04 Metoprolol PO 25 mg BID ROMMEL Administration Nicotine 14 mg 02/12/19 10:00 02/13/19 13:19 Habitrol TD 14 mg QDAY ROMMEL Administration Nitroglycerin 0.4 mg 02/12/19 00:24 Nitrostat SL .Q5MIN PRN Chest Pain Ondansetron HCl 4 mg 02/12/19 00:19 02/13/19 00:14 Zofran IV 4 mg Q8H PRN Administration Nausea And Vomiting Oxycodone/Acetaminophen 1 tab 02/12/19 00:19 02/13/19 13:19 Percocet 5/325 PO 1 tab Q6H PRN Administration Pain, Moderate (4-6) Pantoprazole Sodium 40 mg 02/12/19 10:00 02/13/19 12:04 Protonix PO 40 mg BID ROMMEL Administration Sodium Chloride 10 ml 02/12/19 10:00 02/13/19 12:05 Sodium Chloride Flush Syringe 10 Ml IV 10 ml BID ROMMEL Administration Sodium Chloride 10 ml 02/12/19 00:19 Sodium Chloride Flush Syringe 10 Ml IV PRN PRN LINE FLUSH
[2019-02-13 20:02] VITALS: BP 166/90
--- NOTE | 2019-02-14 07:25 | Discharge Summary ---
Providers - Providers Date of Admission: 02/12/19 00:19 Attending physician: MACY TATUM MD 02/12/19 00:19 Consult to Physician [CONS] Routine Comment: Consulting Provider: RIOS LAW Physician Instructions: Reason For Exam: chest pain, hx mix2 stent x3 02/13/19 13:06 Consult to Cardiac Rehabilitation [CONS] Routine Reason For Exam: Cardiac Rehab Evaluation Primary care physician: BRUNA ANGEL Hospitalization Condition: Fair Hospital course: 53-year-old -Uk[place] female who is an ongoing smoker with history of RI 2, CAD s/p stent 3, hypertension, hypothyroidism and multiple renal cysts who presents to [facility] ED with complaints of right flank pain, nausea, and chest pain. * /p [facility] this AM which showed multivessel CAD, including left main disease. Pt to be tx to [place] where Dr. Gómez will accept for revascularization. 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 at [facility] as outpatient -Will defer additional cardiac workup per cardiology recommendations -Cardiology consulted Acute Abdominal Pain -Most Likely GERD -Patient complain of abdominal pain/burning after eating -Start on PPI HTN -Monitor BP -Resume home antihypertensive meds -IV hydralazine when necessary CAD -on ASA and statin Tobacco abuse -Current every day smoker -Counseled for cessation for 15 mins and she verbalized understanding -Nicotine patch when necessary Hypothyroidism -Continue Synthroid DVT PPX -On Heparin Disposition: DC/TX-70 ANOTHER TYPE [facility] Exam - Constitutional Vitals: Temp Pulse Resp BP Pulse Ox 98.4 F 94 H 18 166/90 94 02/13/19 19:09 02/13/19 21:49 02/13/19 19:09 02/13/19 21:49 02/13/19 19:09 Plan Follow up with: RIOS LAW MD [Staff Physician] - 7 Days BRUNA ANGEL MD [Primary Care Provider] - 3-5 Days Prescriptions: Cyclobenzaprine [Flexeril 10 MG TAB] 10 mg PO QHS PRN #10 tablet PRN Reason: Muscle Spasm
== END 2019-02-13 22:30 | disposition other institution (70) ==
LOC: ED 16:01 → 4A 02-12 00:19
PROVIDERS: ADMIT Internal Medicine; ATTEND Internal Medicine
DX: R07.89 Other chest pain (principal); R10.9 Unspecified abdominal pain; I10 Essential (primary) hypertension; I25.10 Atherosclerotic heart disease of native coronary artery without angina pectoris; E03.9 Hypothyroidism, unspecified; F17.210 Nicotine dependence, cigarettes, uncomplicated; I25.2 Old myocardial infarction; K21.9 Gastro-esophageal reflux disease without esophagitis; E78.5 Hyperlipidemia, unspecified; Z95.1 Presence of aortocoronary bypass graft; Z90.49 Acquired absence of other specified parts of digestive tract
CPT/HCPCS: 36415; 71045; 74177; 80048; 80053; 81001; 82550; 82553; 82962; 83690; 84484; 85025; 85610; 93005; 93010; 93306; 93458; 96372; 96374; 96375; 96376; 99284; 99406; A9270; C1894; G0378; J0360; J1644; J2250; J2405; J3010; J7040; Q9967

== ENCOUNTER 2019-05-24 09:53 | Outpatient (CLI) | payer OTHER ==
--- NOTE | 2019-05-24 12:02 | Fluoroscopy Report ---
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 Shortness of breath. FINDINGS: 0.5 minutes of fluoroscopy time was utilized. 13 fluoroscopic images were saved. Safety Lamp Keeper film demonstrates an elevated right hemidiaphragm by approximately 2 rib levels. Sniff test clearly demonstrates paradoxical motion of the right hemidiaphragm. IMPRESSION: Right phrenic nerve paralysis Signer Name: Matthew Martinez Jr, MD Signed: 05/24/2019 11:58 AM Workstation Name: [id number]
== END 2019-05-24 09:54 | disposition home or self-care (01) ==
LOC: FLUORO 09:53
PROVIDERS: ATTEND Internal Medicine Critical Care Medicine
DX: G56.81 Other specified mononeuropathies of right upper limb (principal); J98.6 Disorders of diaphragm
CPT/HCPCS: 76000